=== PATIENT | female | born 1945 | race Caucasian/White ===

== ENCOUNTER 2025-05-21 09:11 | Emergency (ER) | payer MEDICARE, SELFPAY ==
--- NOTE | ~2025-05-21 | XR_ITS ---
EXAMINATION: XR CHEST 2 VIEWS HISTORY: sent by PCP COMPARISON: There are no prior studies available for comparison. FINDINGS: PA and lateral views of the chest are submitted. The lungs are expanded and clear. There is no pleural effusion, pneumothorax, or pulmonary vascular congestion. The heart is normal in size. There is mitral annular calcification. There is mild degenerative disc disease of the spine. XR/XR chest 2V IMPRESSION: Clear lungs. Electronically signed by: Pieter Morel MD 05/21/2025 10:51 AM EDT
--- NOTE | 2025-05-21 09:15 | ECG_ITS ---
Test Reason : reported occlusion Blood Pressure : */* mmHG Vent. Rate : 46 BPM Atrial Rate : 46 BPM P-R Int : 176 ms QRS Dur : 154 ms QT Int : 472 ms P-R-T Axes : 60 -12 113 degrees QTcB Int : 413 ms Sinus rhythm with 2:1 AV block Possible Left atrial enlargement Left bundle branch block Abnormal ECG No previous ECGs available Referred By: Generic ED Physician Electronically Signed By: Keaton Pugh
[2025-05-21 09:23] VITALS: BP 146/66; PULSE 45; RESP 18; TEMP 36.7; O2SAT 99; BMI 29.3
[2025-05-21 09:29] VITALS: BP 165/46; PULSE 47; RESP 13; TEMP 36.7; O2SAT 99
--- NOTE | 2025-05-21 09:35 | PC.NURSE ---
Pt originally went to [facility]. They did an EKG and XRay and blood work on the . Her Dr's office called her to get back to an ER for a blockage. Pt has a productive cough. Denies pain or any other symptoms. She is about her usual activities, indepedent at home.
--- NOTE | 2025-05-21 09:36 | ED_ITS ---
HPI - General Adult General Chief complaint: General Medical Stated complaint: blocked artery, sent by pcp Time Seen by Provider: 05/21/25 09:36 Source: patient, RN notes reviewed and old records reviewed Mode of arrival: ambulatory Limitations: no limitations History of Present Illness ED Provider: Radha [facility] narrative: Patient is a 80-year-old female with history of LBBB referred to the ED by her PCP for blocked artery, but denies any current complaints. States was initially referred to [facility] and she went there on Saturday but left from the waiting room due to wait time. She denies any chest pain, palpitations, shortness of breath. Denies dizziness, lightheadedness, fainting, pedal edema or recent weight gain. States that she has been moving which has been stressful. MD complaint: referred by PCP Related Data Allergies Allergy/AdvReac Type Severity Reaction Status Date / Time No Known Allergies Allergy Verified 05/21/25 09:24 Review of Systems 2 Review of Systems: As per HPI Yes all other systems are reviewed and are negative Constitutional: Constitutional: Reports as per HPI Physical Exam ED Vital Signs: Vital Signs - 24 hr 05/21/25 09:23 05/21/25 09:29 05/21/25 10:55 Temperature 98.1 F 98.1 F Pulse Rate 45 L 47 L 54 Respiratory Rate 18 13 10 L Blood Pressure 146/66 H 165/46 H 138/61 Pulse Oximetry 99 99 Oxygen Delivery Method Room Air Room Air Room Air 05/21/25 12:25 05/21/25 13:59 Temperature 98.3 F 98.3 F Pulse Rate 57 66 Respiratory Rate 12 13 Blood Pressure 161/53 H 149/62 H Pulse Oximetry 99 100 Oxygen Delivery Method Room Air Room Air BMI result Body Mass Index 29.3 Vital signs have been reviewed and appear to be correct. Blood pressure normal. Heart rate bradycardic. Respiratory rate normal. Temperature normal. Oxygen saturation normal. Const General: cooperative, healthy appearing and no acute distress Orientation/consciousness: oriented to person, oriented to place, oriented to time and patient oriented x3 Limitations: no limitations HENMT Head: Yes normocephalic and Yes atraumatic Ears: external ears normal General nose exam: Normal external nose present Face and sinus: Yes face symmetric Mouth: oropharynx normal and moist mucous membranes Throat: Yes uvula midline Eyes Pupils: Equal, round and reactive pupils present Neck Neck: Yes normal visual inspection and Yes supple Resp Effort & Inspection: normal respiratory effort and able to speak in complete sentences Auscultation: clear to auscultation bilaterally Cardio Rate: regular rate Rhythm: regular rhythm Heart sounds: S1 normal heart sound present and S2 normal heart sound present GI Palpation (GI): Soft to palpation and nontender Auscultation: normoactive bowel sounds General: Yes no CVA tenderness Back/Spine/Pelvis Back: no CVA tenderness Skin General skin exam: elasticity normal and turgor normal Neuro General: oriented to person, oriented to place, oriented to time, patient oriented x3, moves all extremities, no focal motor deficits and CN's II-XI intact bilaterally Cranial nerves: Yes Equal, round and reactive pupils present Cognition (Neuro): normal cognition Extrem General: Yes full ROM, Yes no calf tenderness and Yes pedal edema (1+ edema) Psych Mental Status: mental status grossly normal Affect: normal affect Thought process: Normal thought process present Medical Decision Making Medical Decision Making [facility] Narrative: Patient is a 80-year-old female with history of LBBB referred to the ED by her PCP for blocked artery, but denies any current complaints. Upon review of EMR from recent [facility] visit, PCP was concerned for complete heart block. Contacted PCP office (Dr. Rodriguez in [place]) and had original EKG faxed here. EKG reviewed with Dr. Rangel who is in agreement that initial EKG appears more consistent with a 2nd degree block than a complete heart block. When here patient's HR noted to drop as low as 35bpm. Several repeat EKGs obtained. Case discussed with Dr. Pugh who feels patient is in advanced AV block. He advises keeping her NPO, stat echo and transfer to [facility] for urgent placement of pacemaker. Patient continues to deny any complaints, was updated on and is agreeable with plan. Cardiology unable to accept patient as no beds available, however, Dr. Pugh requesting patient be ED to ED transfer for placement of pacemaker today. ED transfer accepted by Dr. Gomez at [facility]. Differential Diagnosis Differential Diagnoses: The differential diagnosis associated with the presentation includes as per mdm Admission/Observation Consideration of admission/observation: Escalation of care including admission/observation considered Patient would have been admitted to the hospital and transferred to appropriate facility had their clinical presentation warranted hospital admission. Consult Healthcare Provider Management of the patient was discussed with: Highway Truck Driver (Dr. Pugh, cardiology) Lab Data [facility] Lab Attestation statement: I reviewed the patient's lab results. as per mdm 05/21/25 10:00 05/21/25 10:00 Labs: Lab Results 05/21/25 05/21/25 Range/Units 10:00 12:39 WBC 5.9 (4.8-10.8) X10*3/uL RBC 4.45 (4.20-5.50) X10*6/uL Hgb 12.3 (12.0-16.0) g/dl Hct 35.5 L (37.0-47.0) % MCV 79.8 L (80.0-98.0) fL MCH 27.6 (27.0-33.0) pg MCHC 34.6 (31.0-35.0) g/dl RDW 13.2 (11.0-16.0) % Plt Count 224 (160-400) X10*3/uL MPV 9.1 L (9.4-12.3) fL Immature Gran % (Auto) 0.3 (0.0-0.4) % Neut % (Auto) 72.7 (45-73) % Lymph % (Auto) 18.4 L (20-40) % [place] % (Auto) 7.1 (2-11) % Eos % (Auto) 1.0 (0-4) % Baso % (Auto) 0.5 (0-2) % Lymph # (Auto) 1.1 L (1.2-4.9) X10*3/uL [place] # (Auto) 0.4 (0.1-1.2) X10*3/uL Eos # (Auto) 0.1 (0.0-0.4) X10*3/uL Baso # (Auto) 0.0 (0.0-0.2) X10*3/uL Abs Immat Gran (auto) 0.02 (0.00-0.03) X10*3/uL Absolute Neuts (auto) 4.3 (2.0-8.3) x10*3/uL Absolute Nucleated RBC 0.000 (0.0-0.012) X10*3/uL Nucleated RBC % (auto) 0.0 (0.0-0.2) /100WBC PT 13.2 H (10.9-12.4) SEC INR 1.2 H (0.9-1.1) Sodium 131 L (135-145) mmol/L Potassium 3.6 (3.3-5.1) mmol/L Chloride 95 L (96-108) mmol/L Carbon Dioxide 29 (22-29) mmol/L Anion Gap 11 L (12-20) BUN 10 (9-16) mg/dL Creatinine 0.89 (0.5-1.4) mg/dL Estim Creat Clear Calc 48.6 Estimated GFR > 60 Random Glucose 165 H (60-115) mg/dL Calcium 8.9 (8.4-10.2) mg/dL Magnesium 1.7 (1.6-2.6) mg/dL Total Bilirubin 0.6 (0.0-1.0) mg/dL AST 22 (5-31) U/L ALT 16 (0-31) U/L Alkaline Phosphatase 68 (39-117) U/L Troponin I High Sens 5.9 5.9 (<3.5-17.0) ng/L Total Protein 6.8 (6.5-8.0) g/dL Albumin 4.0 (3.5-5.0) g/dL Independent Interpretation I performed an independent interpretation of an: EKG (EKGs show both sinus bradycardia as well as 2nd degree block, bradycardia between 35-45bpm, LBBB) External Record Review External record reviewed: Inpatient record, Office record and Outpatient record Critical Care Time Critical Care Time Critical Care Time: Yes Total Critical Care Time: 55 Attestation: I have personally provided critical care time exclusive of time spent on separately billable procedures. Time includes review of lab data, radiology results, discussion with consultants, and monitoring for potential decompensation. Intervention performed as documented. Discharge Plan Discharge Clinical Impression: Atrioventricular block, second degree Patient Disposition: [facility] Transfer Details: to [facility] ED Discharge Date/Time: 05/21/25 16:17 Print Language: Tuvaluan
--- NOTE | 2025-05-21 09:39 | ECG_ITS ---
Test Reason : REPEAT Blood Pressure : */* mmHG Vent. Rate : 42 BPM Atrial Rate : 42 BPM P-R Int : 178 ms QRS Dur : 160 ms QT Int : 522 ms P-R-T Axes : 41 -2 86 degrees QTcB Int : 435 ms Sinus rhythm with Mobitz 2 (2nd degree) and 2:1 block beat 4 onwards Left bundle branch block Abnormal ECG When compared with ECG of 21-May-2025 09:18, No significant changes seen Referred By: An Garcia Electronically Signed By: Keaton Pugh
[2025-05-21 10:12] LABS: MANUAL DIFF FLAG NO
--- NOTE | 2025-05-21 10:23 | ECG_ITS ---
Test Reason : REPEAT Blood Pressure : */* mmHG Vent. Rate : 37 BPM Atrial Rate : 37 BPM P-R Int : 178 ms QRS Dur : 156 ms QT Int : 522 ms P-R-T Axes : 36 0 69 degrees QTcB Int : 409 ms 2:1 AV bliock Left bundle branch block Abnormal ECG When compared with ECG of 21-May-2025 10:29, No significant changes seen Referred By: An Garcia Electronically Signed By: Keaton Pugh
[2025-05-21 10:38] LABS: INTERNATIONAL NORM RATIO 1.2 (0.9-1.1); Prothrombin Time 13.2 SEC (10.9-12.4)
[2025-05-21 10:39] LABS: Alanine Aminotransferase 16 U/L (0-31); Albumin Level 4.0 g/dL (3.5-5.0); Alkaline Phosphatase 68 U/L (39-117); Anion Gap 11 (12-20); Aspartate Amino Transferase 22 U/L (5-31); Blood Urea Nitrogen 10 mg/dL (9-16); Calcium 8.9 mg/dL (8.4-10.2); Carbon Dioxide 29 mmol/L (22-29); Chloride 95 mmol/L (96-108); Creatinine Clr Calc Pharmacy 48.6; Estimated Glomerular Filt Rate > 60; Magnesium 1.7 mg/dL (1.6-2.6); Potassium 3.6 mmol/L (3.3-5.1); Sodium 131 mmol/L (135-145); Total Protein 6.8 g/dL (6.5-8.0)
[2025-05-21 10:44] LABS: Hematocrit 35.5 % (37.0-47.0); Hemoglobin 12.3 g/dl (12.0-16.0); Imm Gran Abs Auto 0.02 X10*3/uL (0.00-0.03); Imm Gran Pct Auto 0.3 % (0.0-0.4); Lymphocytes Absolute Auto 1.1 X10*3/uL (1.2-4.9); Mean Corpuscular HGB Conc 34.6 g/dl (31.0-35.0); Mean Corpuscular Hemoglobin 27.6 pg (27.0-33.0); Mean Corpuscular Volume 79.8 fL (80.0-98.0); NRBC Abs Auto 0.000 X10*3/uL (0.0-0.012); NRBC Pct Auto 0.0 /100WBC (0.0-0.2); Platelet Count 224 X10*3/uL (160-400); Red Blood Count 4.45 X10*6/uL (4.20-5.50); White Blood Count 5.9 X10*3/uL (4.8-10.8)
[2025-05-21 10:46] LABS: Troponin-I High Sensitivity 5.9 ng/L (<3.5-17.0)
[2025-05-21 10:55] VITALS: BP 138/61; PULSE 54; RESP 10
--- NOTE | 2025-05-21 11:00 | PC.NURSE ---
Pt has intermittent heart rate in the 30's, looks like first degree heart block on the telemetry. Pt continues to report no complaints.
[2025-05-21 12:25] VITALS: BP 161/53; PULSE 57; RESP 12; TEMP 36.8; O2SAT 99
[2025-05-21 13:13] LABS: Troponin-I High Sensitivity 5.9 ng/L (<3.5-17.0)
--- NOTE | 2025-05-21 13:48 | PC.NURSE ---
Attempted to call report to [facility]. No answer.
[2025-05-21 13:59] VITALS: BP 149/62; PULSE 66; RESP 13; TEMP 36.8; O2SAT 100
--- NOTE | 2025-05-21 15:35 | P.CONCA_ITS ---
History of Present Illness History of Present Illness Date of Service: 05/21/25 Requesting physician: An Garcia Chief complaint: CHB Narrative: [age] year female who we have been asked to see for advanced AV block. Sent from her primary care physician's office where EKGs showed complete heart block. EKGs here has shown two-to-one AV block with left bundle-branch block. She is asymptomatic and denies any chest discomfort shortness of breath. No syncope. Continue no medications to explain the bradycardia. Potassium is normal. Echocardiography has shown normal biventricular function with [id number] mitral valve regurgitation. [facility] Social History Social History Smoked in Last 30 Days: No Use of substances other than those prescribed or required for medical reasons: No Advance Directives: Yes Advance Directives Information Provided: Yes Advance Directives on File: No Meds Allergies Allergy/AdvReac Type Severity Reaction Status Date / Time No Known Allergies Allergy Verified 05/21/25 09:24 Physical Exam 2 Vital Signs: Vital Signs: Last Vital Signs Temp 98.3 F 05/21/25 13:59 Pulse 66 05/21/25 13:59 Resp 13 05/21/25 13:59 BP 149/62 H 05/21/25 13:59 Pulse Ox 100 05/21/25 13:59 O2 Del Method Room Air 05/21/25 13:59 BMI result Body Mass Index 29.3 GENERAL APPEARANCE: in no acute distress, pleasant. NECK: no carotid bruit, no jugular venous distention. SKIN: no suspicious lesions, warm and dry. HEART: no murmurs, regular rate and rhythm. LUNGS: clear to auscultation bilaterally. ABDOMEN: soft, nontender. EXTREMITIES: no edema. PERIPHERAL PULSES: equal. NEUROLOGIC: No gross deficits, AAO X 3 Objective Labs and Meds 05/21/25 10:00 05/21/25 10:00 Lab results: Laboratory Results - last 24 hr 05/21/25 05/21/25 10:00 12:39 WBC 5.9 RBC 4.45 Hgb 12.3 Hct 35.5 L MCV 79.8 L MCH 27.6 MCHC 34.6 RDW 13.2 Plt Count 224 MPV 9.1 L Immature Gran % (Auto) 0.3 Neut % (Auto) 72.7 Lymph % (Auto) 18.4 L [place] % (Auto) 7.1 Eos % (Auto) 1.0 Baso % (Auto) 0.5 Lymph # (Auto) 1.1 L [place] # (Auto) 0.4 Eos # (Auto) 0.1 Baso # (Auto) 0.0 Abs Immat Gran (auto) 0.02 Absolute Neuts (auto) 4.3 Absolute Nucleated RBC 0.000 Nucleated RBC % (auto) 0.0 PT 13.2 H INR 1.2 H Sodium 131 L Potassium 3.6 Chloride 95 L Carbon Dioxide 29 Anion Gap 11 L BUN 10 Creatinine 0.89 Estim Creat Clear Calc 48.6 Estimated GFR > 60 Random Glucose 165 H Calcium 8.9 Magnesium 1.7 Total Bilirubin 0.6 AST 22 ALT 16 Alkaline Phosphatase 68 Troponin I High Sens 5.9 5.9 Total Protein 6.8 Albumin 4.0 Imaging Radiologist's impression: Impressions Chest X-Ray 05/21/25 10:41 IMPRESSION: Clear lungs. Electronically signed by: Pieter Morel MD 05/21/2025 10:51 AM EDT Assessment and Plan (1) Atrioventricular block, second degree: Status: Acute Plan Advanced AV block in a 80-year-old lady with background of left bundle-branch block. She is currently asymptomatic but pacemaker is indicated. Keep NPO. Our plan is to implant a pacemaker today. Echocardiography has shown normal biventricular function and there is no need for RELIGIOUS EDUCATION COORDINATOR etcetera. Would favor doing a left bundle branch area pacemaker. Thank you for allowing me to participate in the care of your patient. Please feel free to contact me if you have any questions. Procedures Date of Service Date of Service: 05/21/25
--- NOTE | 2025-05-21 16:00 | CA_ITS ---
Transthoracic Echocardiogram Amended Patient (Last, First, Middle): Deisy Salomon L Gender: F Date of : 1945 Age: 80 Procedure Date: 05/21/2025 Procedure Type: Transthoracic Echocardiogram Location: ER Height: 157.48 cm Weight: 72.58 kg BSA: 1.74 m2 Heart Rate: bpm BP: 149 / 62 mmHg Rn Child: PETER Referring MD: An Garcia NP Symptoms: advanced AV block Study Quality: Adequate Conclusions: - Normal left ventricular size and systolic function. There is mildly increased left ventricular wall thickness. The visually estimated ejection fraction is between 55-60%. - Normal right ventricular cavity size and systolic function. - The left atrium is moderately dilated. - There is mild to moderate mitral valve regurgitation. Findings Left Ventricle Normal left ventricular size and systolic function. There is mildly increased left ventricular wall thickness. The visually estimated ejection fraction is between 55-60%. There is no evidence of regional wall motion abnormalities. Diastolic function is indeterminate on the basis of available data. Right Ventricle Normal right ventricular cavity size and systolic function. Atria The left atrium is moderately dilated. The right atrium is normal in size. Aortic Valve Normal aortic valve structure and function. There is no aortic valve stenosis. There is no aortic valve regurgitation. Mitral Valve There is severe mitral annular calcification. There is mild to moderate mitral valve regurgitation. There is no mitral valve stenosis. Pulmonic Valve The pulmonic valve is likely normal. Tricuspid Valve Normal tricuspid valve structure. There is no tricuspid valve regurgitation. The right ventricular systolic pressure is 30 mmHg. Normal right atrial pressure. There is no evidence of pulmonary hypertension. Great Vessels All visible segments of the aorta are normal in size. The visualized portions of the pulmonary artery and branches are normal. Venous The inferior vena cava is normal in size and collapses greater than 50% with inspiration. Pericardium/Pleural There is no evidence of pericardial effusion. Prior Study Comparison No prior study available for comparison. Measurements 2D Linear Measurements IVSd: 1.26 0.6-0.9/0.6-1.0 cm LVIDd: 4.46 3.9-5.3/4.2-5.9 cm LVIDd Index: 2.56 2.4-3.2/2.2-3.1 cm/m2 LVIDs: 3.27 2.0-3.6 cm LVPWd: 1.17 0.7-1.1 cm LA Diam: 4.30 2.7-3.8/3.0-4.0 cm LAIDs Index: 2.47 1.5-2.3 cm/m2 LV Mass: 247.90 67-162/88-224 g LV Mass Index: 142.47 43-95/49-115 g/m2 LVOT Diam: 2.00 3.0+(-)1.3 cm 2D Systolic Function EF 4C: 47.50 >55% EF 2C: 62.10 >55% EF BiP: 55.50 >55% Mitral Valve MV VTI: 0.43 MV Pk Gary: 1.69 MV Mn Gary: 0.92 MV Pk Grad: 11.00 MV Mn Grad: 4.00 MV Pk E: 0.89 MV PK A: 1.48 MV Decel Time: 292.00 E/A: 0.60 E'Lateral: 4.87 E'Medial: 4.22 E/E' Med: 21.20 E/E' Lat: 18.40 PHT: 86.00 MVA PHT: 2.56 MVA Continuity: 1.53 Decel Long: 3.06 MR Vol - PW Dopp: 8.04 MR VTI: 2.01 MR ERO: 4.00 MR Alias Gary: 0.39 MR RAD: 0.30 Aortic Valve AoV Pk Gary: 1.40 AoV Mn Gary: 0.92 AoV VTI: 0.33 AoV Pk Grad: 8.00 Aov Mn Grad: 4.00 BRIDGET Cont.VTI: 2.00 LVOT LVOT Pk Gary: 0.89 LVOT Mn Gary: 0.64 LVOT VTI: 0.21 LVOT Pk Grad: 3.00 LVOT Mn Grad: 2.00 LVOT Diam: 2.00 LVOT Area: 3.14 Diastolic Function MV Pk E: 0.89 MV Pk A: 1.48 E/A: 0.60 E'Medial: 4.22 E/E' Med: 21.20 E' Laterial: 4.87 E/E' Lat: 18.40 Right Ventricle TAPSE (mm): 22.40 TVS' Gary: 12.40 Tricuspid Valve TR Pk Gary: 2.60 TR Pk Grad: 27.00 RA Press: 3.00 RVSP: 30.00 Great Vessels Aorta Sinus of Valsalva: 3.00 2.0-3.5 cm Ao Asc: 3.60 2.1-3.4 cm Ao Arch: 3.00 Pulmonary Veins Pulm Vein S/D 2.20 Pulmonary Valve PV Pk Gary: 0.94 Peak PV Grad: 4.00 Updated in Other Vendor System with Status of Final Keaton Pugh MD electronically signed on 05/31/2025 3:48:16 PM with status of Final
== END 2025-05-21 16:17 | disposition short-term general hospital (02) ==
PROVIDERS: Registered Nurse Emergency; Emergency Provider Emergency Medicine Emergency Medical Services; PCP Internal Medicine
DX: I65.09 Occlusion and stenosis of unspecified vertebral artery (principal)
CPT/HCPCS: 36415; 71046; 80053; 83735; 84484; 85025; 85610; 93005; 93306; 99284; 99291; Q9957

== ENCOUNTER → 2025-05-21 09:40 | Outpatient (BNV) | payer MEDICARE, SELFPAY | PROVIDERS: Emergency Provider Emergency Medicine Emergency Medical Services; PCP Internal Medicine; Visit Provider Radiology Diagnostic Radiology | DX: I44.1 Atrioventricular block, second degree (principal) | CPT/HCPCS: 71046 ==

== ENCOUNTER → 2025-05-21 09:44 | Outpatient (BNV) | payer MEDICARE, SELFPAY | PROVIDERS: Emergency Provider Emergency Medicine Emergency Medical Services; PCP Internal Medicine; Visit Provider Internal Medicine Cardiovascular Disease | DX: I44.1 Atrioventricular block, second degree (principal) | CPT/HCPCS: 93010; 99284 ==

== ENCOUNTER 2025-08-01 10:48 | Inpatient (IN) | payer MEDICARE, SELFPAY ==
--- NOTE | ~2025-08-01 | US_ITS ---
CLINICAL HISTORY: jaundice --- Additional Notes or Special Instructions: CBD and GB pls US abdomen limited Comparison: None provided Findings: There is irregular hypoechoic heterogeneous lesion centered within the uncinate process of the pancreas measuring 4 x 2.7 x 3.4 cm. Moderate upstream dilation of the pancreatic duct up to 1.8 cm. The aorta and inferior vena cava are normal caliber. Liver measures 18.5 cm in size. It demonstrates increased parenchymal echogenicity. There is evidence of intra and extrahepatic ductal dilation. The common duct is 19 mm in diameter. Gallbladder is nondistended. It contains moderate amount of stones and sludge. The main portal vein is antegrade. The right kidney is 11.8 cm in length. No ascites. IMPRESSION: 1. Hypoechoic irregular lesion within the uncinate process of the pancreas measuring 4 x 2.7 x 3.4 cm with associated upstream pancreatic, common bile duct and intrahepatic ductal dilation. Findings are highly concerning for pancreatic malignancy until proven otherwise. Further evaluation with multiphase CT or MRI should be considered. 2. Moderate cholelithiasis without definite sonographic findings to suggest acute cholecystitis. 3. Additional findings as above. This document has been electronically signed by: Khushboo Gonzalez MD on 08/01/2025 12:07:25
--- NOTE | ~2025-08-01 | FL_ITS ---
EXAMINATION: FL GUIDANCE ONLY HISTORY: ERCP COMPARISON: Correlation is made with a CT of the abdomen with contrast dated 08/01/2025. TECHNIQUE: Fluoroscopy time: 6 minutes, 30 seconds. Cumulative Dose: 127.50 mGy. DAP: 4860.1 uGym2 Images: 17. FINDINGS: Fluoroscopic spot films from an ERCP demonstrate dilatation of the common bile duct and intrahepatic biliary radicles with abrupt tapering. The final images demonstrate placement of a stent. FL/FL guidance in OR IMPRESSION: Fluoroscopy during procedure. Please see procedure report for additional information. Electronically signed by: Pieter Morel MD 08/03/2025 07:[address] [facility]
--- NOTE | ~2025-08-01 | CT_ITS ---
CLINICAL HISTORY: jaundice, ?pancreatic mass on us CT abdomen and pelvis with contrast Comparison: Abdominal ultrasound 08/01/2025 Findings: No acute findings within visualized lung bases. As seen on preceding ultrasound, there is ill-defined hypoenhancing lesion centered within the uncinate process of the pancreas measuring 3.1 x 3 x 2.8 cm ( series 3, image 28 and series 6, image 29 ). There is moderate upstream dilation of the pancreatic and common bile ducts as well as moderate prominence of intrahepatic bile ducts. Gallbladder is moderately distended. Layering calcified gallstones. No wall thickening or pericholecystic edema. Spleen, kidneys, adrenal glands, are unremarkable. Calcified but nonaneurysmal abdominal aorta. Distended urinary bladder. Hysterectomy. Nondistended stomach. No small bowel obstruction. Colonic diverticulosis without CT evidence of acute diverticulitis. Colon is otherwise unremarkable. No appendicitis. No definite pathologically enlarged lymph nodes. No acute osseous abnormality. No lytic or sclerotic osseous lesions. Impression: 1. Heterogeneous hypoenhancing mass within the uncinate process of the pancreas highly concerning for primary pancreatic malignancy. Moderate upstream dilation of the intrahepatic, pancreatic and common bile ducts. 2. Distended gallbladder containing several layering stones without definite CT evidence to suggest acute cholecystitis. 3. Additional findings as above. This document has been electronically signed by: Khushboo Gonzalez MD on 08/01/2025 12:48:11
[2025-08-01 10:53] VITALS: BP 173/73; PULSE 68; RESP 16; TEMP 36.5; O2SAT 99; BMI 28.0
--- NOTE | 2025-08-01 10:59 | ED_ITS ---
HPI - General Adult General Chief complaint: General Medical Stated complaint: jaundice? Time Seen by Provider: 08/01/25 10:57 Source: patient, RN notes reviewed and old records reviewed Mode of arrival: ambulatory Limitations: no limitations History of Present Illness ED Provider: Radha [facility] narrative: Patient is a 80-year-old female with history of recent pacemaker placement on 05/21/2025 presenting to the emergency department as family noted she was appearing jaundiced. Patient states that she has not noticed the jaundice herself in the mirror. Patient denies any abdominal pain, nausea, vomiting, diarrhea, constipation. Denies any recent fevers. Denies any chest pain or shortness of breath. She does note that for the past week or so she has had white/pressley bowel movements. She was attributing this to recently beginning a turmeric supplement around the same time. Saw her biological scientist on and they did not note that she appeared jaundiced at that visit. MD complaint: jaundice Related Data Allergies Allergy/AdvReac Type Severity Reaction Status Date / Time No Known Allergies Allergy Verified 08/01/25 10:55 Review of Systems 2 Review of Systems: as per hpi Yes all other systems are reviewed and are negative Constitutional: Constitutional: Reports as per HPI [facility] Social History Social History Smoked in Last 30 Days: No Use of substances other than those prescribed or required for medical reasons: No Advance Directives: No Advance Directives Information Provided: Yes Do you have a plan to hurt others: No Plan Physical Exam ED Vital Signs: Vital Signs - 24 hr 08/01/25 10:53 08/01/25 14:36 Temperature 97.7 F 98.1 F Pulse Rate 68 62 Respiratory Rate 16 16 Blood Pressure 173/73 H 135/52 L Pulse Oximetry 99 98 Oxygen Delivery Method Room Air Room Air BMI result Body Mass Index 28.0 Vital signs have been reviewed and appear to be correct. Blood pressure elevated. Heart rate normal. Respiratory rate normal. Temperature normal. Oxygen saturation normal. Const General: cooperative, healthy appearing and no acute distress Orientation/consciousness: oriented to person, oriented to place, oriented to time and patient oriented x3 Limitations: no limitations HENMT Head: Yes normocephalic and Yes atraumatic Ears: external ears normal General nose exam: Normal external nose present Face and sinus: Yes face symmetric Mouth: oropharynx normal and moist mucous membranes Throat: Yes uvula midline Eyes Sclerae: scleral abnormal bilateral (icterus) Pupils: Equal, round and reactive pupils present Neck Neck: Yes normal visual inspection and Yes supple Resp Effort & Inspection: normal respiratory effort and able to speak in complete sentences Auscultation: clear to auscultation bilaterally Cardio Rate: regular rate Rhythm: regular rhythm Heart sounds: S1 normal heart sound present and S2 normal heart sound present GI Palpation (GI): Soft to palpation and nontender Auscultation: normoactive bowel sounds General: Yes no CVA tenderness Back/Spine/Pelvis Back: no CVA tenderness Skin General skin exam: elasticity normal, turgor normal and jaundice Neuro General: oriented to person, oriented to place, oriented to time, patient oriented x3, moves all extremities, no focal motor deficits and CN's II-XI intact bilaterally Cranial nerves: Yes Equal, round and reactive pupils present Cognition (Neuro): normal cognition Extrem General: Yes full ROM, Yes no pedal edema and Yes no calf tenderness Psych Mental Status: mental status grossly normal Affect: normal affect Thought process: Normal thought process present Medications Administered Discontinued Medications Generic Name Dose Route Start Last Admin Trade Name Freq PRN Reason Stop Dose Admin Iohexol 100 ml 08/01/25 12:08 08/01/25 12:09 Iohexol 350 Mg/Ml 100 Ml Infus..Btl IV 08/01/25 12:09 85 ml ONCE ONE Administration Medical Decision Making Medical Decision Making [facility] Narrative: Patient is a 80-year-old female with history of recent pacemaker placement on 05/21/2025 presenting to the emergency department as family noted she was appearing jaundiced. On exam patient is awake, A+Ox3, VS WNL, afebrile, normal neurological exam without focal deficits, physical exam findings as above. Given reported symptoms and physical exam findings, initial differential includes but is not limited to choledocolithiasis, turmeric-induced hepatotoxicity, malignant biliary obstruction, acute liver failure. Unlikely ascending cholangitis. Labs notable for significantly elevated Tbili, direct bili, mildly elevated transaminases, elevated alk phos, elevated lipase and triglycerides. Ultrasound notable for pancreatic lesion with pancreatic, CBD and intrahepatic ductal dilation concerning for malignancy. CT abdomen pelvis notable again for pancreatic mass and dilation of ducts. Also notable for distended gallbladder containing several layering stones. My interpretation is in agreement with the radiologist's interpretation. Case discussed with Dr. Soria from who is requesting STAT MRCP. Spoke with MRI, they feel MRCP unlikely today. Dr. Soria feels patient can be admitted here and get the MRCP in the morning. Case discussed with SEJAL Castillo hospitalist who accepts admission to medicine. Differential Diagnosis Differential Diagnoses: The differential diagnosis associated with the presentation includes as per [facility] Consult Healthcare Provider Management of the patient was discussed with: Hospitalist and Supervisor [employer] (Dr. Soria) Lab Data [facility] Lab Attestation statement: I reviewed the patient's lab results. as per [facility] 08/01/25 11:11 08/01/25 11:11 Labs: Lab Results 08/01/25 Range/Units 11:11 WBC 6.0 (4.8-10.8) X10*3/uL RBC 4.24 (4.20-5.50) X10*6/uL Hgb 11.7 L (12.0-16.0) g/dl Hct 35.4 L (37.0-47.0) % MCV 83.5 (80.0-98.0) fL MCH 27.6 (27.0-33.0) pg MCHC 33.1 (31.0-35.0) g/dl RDW 18.4 H (11.0-16.0) % Plt Count 226 (160-400) X10*3/uL MPV 10.8 (9.4-12.3) fL Immature Gran % (Auto) 0.7 H (0.0-0.4) % Neut % (Auto) 72.1 (45-73) % Lymph % (Auto) 16.4 L (20-40) % [place] % (Auto) 9.0 (2-11) % Eos % (Auto) 1.3 (0-4) % Baso % (Auto) 0.5 (0-2) % Lymph # (Auto) 1.0 L (1.2-4.9) X10*3/uL [place] # (Auto) 0.5 (0.1-1.2) X10*3/uL Eos # (Auto) 0.1 (0.0-0.4) X10*3/uL Baso # (Auto) 0.0 (0.0-0.2) X10*3/uL Abs Immat Gran (auto) 0.04 H (0.00-0.03) X10*3/uL Absolute Neuts (auto) 4.3 (2.0-8.3) x10*3/uL Absolute Nucleated RBC 0.000 (0.0-0.012) X10*3/uL Nucleated RBC % (auto) 0.0 (0.0-0.2) /100WBC PT 15.3 H (11.2-13.5) SEC INR 1.3 H (0.9-1.1) Sodium 134 L (135-145) mmol/L Potassium 3.7 (3.3-5.1) mmol/L Chloride 103 (96-108) mmol/L Carbon Dioxide 24 (22-29) mmol/L Anion Gap 11 L (12-20) BUN 12 (9-16) mg/dL Creatinine 0.51 (0.5-1.4) mg/dL Estim Creat Clear Calc 83.0 Estimated GFR > 60 Random Glucose 160 H (60-115) mg/dL Calcium 9.0 (8.4-10.2) mg/dL Total Bilirubin 17.4 H (0.0-1.0) mg/dL Direct Bilirubin 12.0 H (0.0-0.5) mg/dL AST 94 H (5-31) U/L ALT 93 H (0-31) U/L Alkaline Phosphatase 349 H (39-117) U/L Ammonia 22 (13-55) umol/L Total Protein 6.5 (6.5-8.0) g/dL Albumin 3.6 (3.5-5.0) g/dL Triglycerides 215 H (<150) mg/dL Lipase 1034 H (8-78) U/L Independent Interpretation I performed an independent interpretation of an: Ultrasound and CT Scan Interpretation: Ultrasound notable for pancreatic lesion with pancreatic, CBD and intrahepatic ductal dilation concerning for malignancy. CT abdomen pelvis notable again for pancreatic mass and dilation of ducts. Also notable for distended gallbladder containing several layering stones. Radiology Impression Discussion of test interpretation with radiology: I have reviewed the radiologist's reading. Radiologist Impression: Impression: 1. Heterogeneous hypoenhancing mass within the uncinate process of the pancreas highly concerning for primary pancreatic malignancy. Moderate upstream dilation of the intrahepatic, pancreatic and common bile ducts. 2. Distended gallbladder containing several layering stones without definite CT evidence to suggest acute cholecystitis. 3. Additional findings as above. IMPRESSION: 1. Hypoechoic irregular lesion within the uncinate process of the pancreas measuring 4 x 2.7 x 3.4 cm with associated upstream pancreatic, common bile duct and intrahepatic ductal dilation. Findings are highly concerning for pancreatic malignancy until proven otherwise. Further evaluation with multiphase CT or MRI should be considered. 2. Moderate cholelithiasis without definite sonographic findings to suggest acute cholecystitis. 3. Additional findings as above. External Record Review External record reviewed: Inpatient record, Office record and Outpatient record Critical Care Time Critical Care Time Critical Care Time: Yes Total Critical Care Time: 55 Attestation: I have personally provided critical care time exclusive of time spent on separately billable procedures. Time includes review of lab data, radiology results, discussion with consultants, and monitoring for potential decompensation. Intervention performed as documented. Discharge Plan Discharge Print Language: Kyrgyz
[2025-08-01 11:18] LABS: Hematocrit 35.4 % (37.0-47.0); Hemoglobin 11.7 g/dl (12.0-16.0); Imm Gran Abs Auto 0.04 X10*3/uL (0.00-0.03); Imm Gran Pct Auto 0.7 % (0.0-0.4); Lymphocytes Absolute Auto 1.0 X10*3/uL (1.2-4.9); MANUAL DIFF FLAG NO; Mean Corpuscular HGB Conc 33.1 g/dl (31.0-35.0); Mean Corpuscular Hemoglobin 27.6 pg (27.0-33.0); Mean Corpuscular Volume 83.5 fL (80.0-98.0); NRBC Abs Auto 0.000 X10*3/uL (0.0-0.012); NRBC Pct Auto 0.0 /100WBC (0.0-0.2); Platelet Count 226 X10*3/uL (160-400); Red Blood Count 4.24 X10*6/uL (4.20-5.50); White Blood Count 6.0 X10*3/uL (4.8-10.8)
--- NOTE | 2025-08-01 11:24 | PC.NURSE ---
Pt is deep yellow/jaundice. Sclera, chest, abd. Denies pain and all hx related to liver issues. Never drank. Recently started Tumeric and wondered if this could be the cause.
[2025-08-01 11:25] LABS: INTERNATIONAL NORM RATIO 1.3 (0.9-1.1); Prothrombin Time 15.3 SEC (11.2-13.5)
[2025-08-01 11:27] LABS: Ammonia 22 umol/L (13-55)
[2025-08-01 11:41] LABS: Alanine Aminotransferase 93 U/L (0-31); Albumin Level 3.6 g/dL (3.5-5.0); Alkaline Phosphatase 349 U/L (39-117); Anion Gap 11 (12-20); Aspartate Amino Transferase 94 U/L (5-31); Blood Urea Nitrogen 12 mg/dL (9-16); Calcium 9.0 mg/dL (8.4-10.2); Carbon Dioxide 24 mmol/L (22-29); Chloride 103 mmol/L (96-108); Creatinine Clr Calc Pharmacy 83.0; Estimated Glomerular Filt Rate > 60; Potassium 3.7 mmol/L (3.3-5.1); Sodium 134 mmol/L (135-145); Total Protein 6.5 g/dL (6.5-8.0); Triglycerides 215 mg/dL (<150)
[2025-08-01] MEDS: iohexoL 350 MG/ML 100 ML INFUS..BTL IV (12:09)
[2025-08-01 12:19] LABS: Lipase 1034 U/L (8-78)
[2025-08-01 14:36] VITALS: BP 135/52; PULSE 62; RESP 16; TEMP 36.7; O2SAT 98
--- NOTE | 2025-08-01 14:48 | PM.IMHP ---
History of Present Illness Date of Service: 08/01/25 Chief Complaint: jaundice 80-year-old woman with a history of hypertension, hypothyroidism, left bundle branch block status post dual-chamber pacemaker secondary to jaundice. Apparently the patient had noticed that the patient's skin color was yellowing the patient herself had not noticed. Her daughter saw her today and noted the change. Patient denied chest pain, abdominal pain, nausea, vomiting, diarrhea, fever, chills, recent travel. She did not notice isidra-colored stools over the last 3 or [address] showing heterogeneous hypoenhancing mass within the uncinate process of the pancreas highly concerning for primary pancreatic malignancy. Total bilirubin 17.4, AST 94, ALT 93, alk phos 349, lipase 1034. Plan will be to admit patient for further management treatment of acute pancreatitis, transaminitis and question of pancreatic mass. Review of Systems Review of Systems: Denies any recent fever chills or decrease in appetite respiratory denies any shortness of breath or cough cardiovascular denied chest pain gastrointestinal denies any dysphagia abdominal pain nausea vomiting or diarrhea genitourinary denies any dysuria frequency or hematuria musculoskeletal denies any joint pain or swelling neuropsych denies any weakness or seizures all other systems reviewed are negative [facility] Medical History Normocytic anemia Hypertension Hypothyroidism Family History (Updated 08/01/25 @ 16:18 by Anna Almeida NP) Father Colon cancer Mother Brittle diabetes mellitus Surgical History H/O: hysterectomy Social History (Updated 08/01/25 @ 16:18 by Anna Almeida NP) Household Members: None Household Members Other:: Lives alone Housing: Apartment Do you presently have visiting nurse or other home services: No Patient Tobacco Use Status: Never used Tobacco Smoked in Last 30 Days: No Use of substances other than those prescribed or required for medical reasons: No Have you been hit, kicked, punched, or otherwise hurt by someone within the past year? If so, by whom?: No Do you feel safe in your current relationship?: No Current Relationship Is there a partner from a previous relationship who is making you feel unsafe now?: No Are you made to feel afraid or neglected: No Advance Directives: No Advance Directives Information Provided: Yes Do you have a plan to hurt others: No Plan Recently lost weight without trying: No Eating poorly because of decreased appetite: No Nutrition Risks: No Nutritional Risk Patient : No : No Poor oral hygiene: No Meds Allergies Allergy/AdvReac Type Severity Reaction Status Date / Time No Known Allergies Allergy Verified 08/01/25 10:55 Home Medications ?Medication ?Instructions ?Recorded ?Confirmed ?Last Taken ?Type glucosamine sulf dipot 1 cap PO BID 08/01/25 08/01/25 08/01/25 History chlr,msm,chond 550 mg-C 30 mg-ara 1 mg capsule (Glucosamine Chondroitin) levothyroxine 100 mcg tablet 100 mcg PO DAILY 08/01/25 08/01/25 08/01/25 History metoprolol succinate 25 mg 25 mg PO DAILY 08/01/25 08/01/25 08/01/25 History tablet,extended release 24 hr multivitamin 1 tab PO DAILY 08/01/25 08/01/25 08/01/25 History Physical Exam Vital Signs and Narrative: Vital Signs: Last Vital Signs Temp 98.1 F 08/01/25 14:36 Pulse 62 08/01/25 14:36 Resp 16 08/01/25 14:36 BP 135/52 L 08/01/25 14:36 Pulse Ox 98 08/01/25 14:36 O2 Del Method Room Air 08/01/25 14:36 BMI result Body Mass Index 28.0 Appearing in no acute distress head is normocephalic atraumatic eyes pupils are PERRLA sclera is anicteric mouth throat mucous membranes are intact and moist neck is supple no lymphadenopathy, no JVD noted lung sounds are clear to auscultation heart regular rate rhythm, clear S1, S2 positive bowel sounds, abdomen is soft, nontender neuro patient is alert x3, no focal deficits Results Labs 08/01/25 11:11 08/01/25 11:11 Labs: Laboratory Results - last 24 hr 08/01/25 11:11 MCV 83.5 MCH 27.6 MCHC 33.1 RDW 18.4 H Plt Count 226 MPV 10.8 Immature Gran % (Auto) 0.7 H Neut % (Auto) 72.1 Lymph % (Auto) 16.4 L [place] % (Auto) 9.0 Eos % (Auto) 1.3 Baso % (Auto) 0.5 Lymph # (Auto) 1.0 L [place] # (Auto) 0.5 Eos # (Auto) 0.1 Baso # (Auto) 0.0 Abs Immat Gran (auto) 0.04 H Absolute Neuts (auto) 4.3 Absolute Nucleated RBC 0.000 Nucleated RBC % (auto) 0.0 PT 15.3 H INR 1.3 H Anion Gap 11 L Estim Creat Clear Calc 83.0 Estimated GFR > 60 Random Glucose 160 H Calcium 9.0 Total Bilirubin 17.4 H Direct Bilirubin 12.0 H AST 94 H ALT 93 H Alkaline Phosphatase 349 H Ammonia 22 Total Protein 6.5 Albumin 3.6 Triglycerides 215 H Lipase 1034 H Assessment and Plan (1) Pancreatic mass: Status: Acute Plan 80 year old women with hx of left bundle branch block status post dual chamber pacemaker, hypothyroidism, hypertension presenting to ER with new onset jaundice Acute transaminitis with jaundice Total bilirubin 17.4, AST 94, ALT 93, alk phos 349 Moderate upstream dilation of the intrahepatic, pancreatic and common bile ducts noted Gastroenterology consultation Unable to do MRCP due to incompatible pacemaker Pancreatitis Abdominal CT showing mass of the pancreas highly concerning for primary pancreatic malignancy Oncology consultation of light of possible malignancy check tumor markers CEA, CA 19-9 Pain management IV fluids Hypertension Stable blood pressure Hypothyroidism Continue levothyroxine Normocytic anemia stable HH check Iron profiles History of left bundle-branch block Dual-chamber pacemaker placement at [facility] in April 2025 DVT prophylaxis with heparin Full code Quality Stroke Does the patient have a stroke diagnosis?: No VTE Prior VTE?: No VTE Risk Level:: Medical - moderate - high VTE Device Contraindication: Treatment Not Indicated VTE Drug Contraindication: N/A - Med Ordered
--- NOTE | 2025-08-01 15:28 | HO.NURTONUR ---
Patient admitted with acute transminitis w/ jaundice, pancreatitis, hypertension, and hypothyroidism. Pt to get MRCP tomorrow, needs pacemaker rep in order to proceed. Oncology consult for tomorrow. IV LR running. 22 G in the right AC. Elevated bilirubin, LFTs, and lipase.
[2025-08-01] MEDS: Lactated Ringers 1,000 ML 100 ML IVCONT (15:49)
--- NOTE | 2025-08-01 16:06 | PHA.MEDREC ---
Addendum entered by Kiley Umana RPh 08/01/25 16:10: REVIEWED BY PHARMACIST, PATIENT STATES NO LONGER TAKING AMLODIPINE Original Note: Pharmacy Consult ? Medication Reconciliation Pharmacy has completed the medication reconciliation. Confirmed medication list with patient. patient claims they take a multivitamin PO QD, and a Glucosamine-Chondroitin supplement PO BID. Patient took morning doses of all medications today.
[2025-08-01 16:23] VITALS: BP 142/58; PULSE 65; RESP 18; TEMP 36.8; O2SAT 96; BMI 29.5
[2025-08-01 18:10] LABS: Carcinoembryonic Antigen 4.50 ng/mL
[2025-08-01 20:00] VITALS: BP 147/67; PULSE 68; RESP 18; TEMP 36.4; O2SAT 97
--- NOTE | 2025-08-01 20:19 | PM.EVENT ---
Event Note Date of Service: 08/01/25 Event Note: GI Consult-Full note dictated-History from patient and EMR. Imp: Obstructive jaundice due to probable pancreatic neoplasm, as well as possible component of CBD stones. Presently without any abdominal pain or signs of cholangitis. She can not have a MRI/MRCP due to a pacemaker that is reportedly not MRI compatible as per the ER staff. Rec: ERCP with planned sphincerotomy, brushings/biopsies, and biliary stent placement with me or Dr. Oreilly. Full consent obtainced from her for this, including risks of bleeding, perforation, cholangitis, and pancreatitis. D/W patient in detail and she is comfortable with this plan. Thanks Time Spent With Patient Time: Total time managing care of this patient today ____ minutes.
--- NOTE | 2025-08-01 20:37 | MHC.SHP ---
Pre-Procedural Eval Section A - 24 Hr Update-Section A only Date of Service: 08/02/25 The patient is an INPATIENT: Yes The patient has been examined within 24 hours of the surgical procedure. The History & Physical has been completed within 30 days and I have reviewed it.: Yes Section B - Complete if H&P > 30 days Chief Complaint: Transaminitis Jaundice Allergies: Allergies Allergy/AdvReac Type Severity Reaction Status Date / Time No Known Allergies Allergy Verified 08/01/25 10:55 Plan I have reviewed the history and physical and performed a pertinent physical examination on my patient. No changes have occurred unless specified. Time Spent With Patient Time: Total time managing care of this patient today ____ minutes.
[2025-08-02] VITALS (9 sets, daily range): BP systolic 124–172; BP diastolic 47–72; PULSE 60–74; RESP 12–20; TEMP 36.3–36.8; O2SAT 97–100
--- NOTE | 2025-08-02 00:45 | CONS_ITS ---
DATE OF SERVICE: 08/01/2025 REASON FOR CONSULTATION: Painless jaundice and abnormal imaging of her biliary tract. HISTORY OF PRESENT ILLNESS: This has been obtained from the patient and the medical record. The patient is a 80-year-old female who was noticed to be come jaundice by her family and was brought to the ER today. She had normal LFTs back in April prior to placement of a pacemaker. Most recently, she has not had any particular abdominal pain. However, she has noticed some darkened urine and light-colored stools. This has been going on for at least a week or 2. Today, her daughter visited her and noticed her to be jaundice, which prompted the ER visit. The patient denies any previous history of liver disease or pancreatic disease in herself or family members. She does not use any significant amounts of alcohol. She has not been on any new medication. In the ER, she was found to be markedly jaundiced both on exam and by her laboratories, and have evidence of obstructive jaundice with pancreatic mass on her CT scan. She has a pacemaker in and this was reported as not compatible with MRI and therefore MRI with MRCP could not be obtained. She presently denies any abdominal pain. She has not noticed any pruritus. She think she may have lost a little weight. She has been somewhat anorectic, but generally has been eating fairly well. She denies any dysphagia. She has not noticed any hematochezia nor melena. She denies any fevers. MEDICATIONS: At home included levothyroxine and metoprolol. PAST MEDICAL HISTORY: Hypertension. Hypothyroidism. Pacemaker placed back in April. Complete hysterectomy. She denies any history of UT, diabetes, stroke, or lung disease. SOCIAL HISTORY: She is a and lives by herself. She does not smoke nor use any significant amounts of alcohol. FAMILY HISTORY: Noncontributory. REVIEW OF SYSTEMS: CONSTITUTIONAL: She had been feeling well with fairly good appetite. SKIN: She has had jaundice, but no rash or pruritus. CARDIAC: No chest pain. PULMONARY: No coughing or hemoptysis. GI: As above. URINARY: No dysuria. No hematuria. NEUROLOGIC: No headache or seizures. PHYSICAL EXAMINATION: GENERAL: The patient is a pleasant alert, elderly female. HEENT: She has jaundice with icteric sclerae. Moist mucous membranes. NECK: Supple without lymphadenopathy. CHEST: Clear. CARDIAC: Normal S1, S2. ABDOMEN: Soft, nondistended, nontender without mass. LABORATORY DATA: Her CT scan and ultrasound both show evidence of a pancreatic mass in the uncinate process measuring approximately 3 cm. There was evidence of obstruction of the pancreatic and common bile ducts, as well as the intrahepatic ducts. Gallstones are noted in the gallbladder. Her abdominal ultrasound confirmed similar findings. Labs revealed a white count 6000, hemoglobin 11.7, platelets 226,000. PT 15.3 with INR 1.3. Normal electrolytes. BUN 12, creatinine 0.5. Total bilirubin 17.4, direct bilirubin 12.0, AST 94, ALT 93, alkaline phosphatase 349, lipase 1034. IMPRESSION: Given the patient's workup and clinical history this certainly speaks for a probable pancreatic neoplasm causing obstructive jaundice. She does have gallstones and there may be a component of choledocholithiasis as well. MRI with MRCP cannot be obtained due to her pacemaker. As such, I would recommend ERCP for further evaluation. The plan would be that of a sphincterotomy, brushings and/or biopsies, and placement of a biliary stent. Full consent has been obtained from the patient for this, including risks of bleeding, perforation, cholangitis, and pancreatitis. I did advise her that she may need further evaluation after the procedure, including endoscopic ultrasound and Oncology followup. This has all been discussed in detail with the patient, including the probability of a pancreatic neoplasm, and she is comfortable with the plan. MD TYLER Tse/SHERIN / [id number]
[2025-08-02] MEDS: Lactated Ringers 1,000 ML 100 ML IVCONT ×3 (03:18→22:59)
[2025-08-02 06:18] LABS: MANUAL DIFF FLAG NO
[2025-08-02 06:23] LABS: Hematocrit 31.5 % (37.0-47.0); Hemoglobin 10.6 g/dl (12.0-16.0); Imm Gran Abs Auto 0.03 X10*3/uL (0.00-0.03); Imm Gran Pct Auto 0.5 % (0.0-0.4); Lymphocytes Absolute Auto 1.0 X10*3/uL (1.2-4.9); Mean Corpuscular HGB Conc 33.7 g/dl (31.0-35.0); Mean Corpuscular Hemoglobin 27.7 pg (27.0-33.0); Mean Corpuscular Volume 82.2 fL (80.0-98.0); NRBC Abs Auto 0.000 X10*3/uL (0.0-0.012); NRBC Pct Auto 0.0 /100WBC (0.0-0.2); Platelet Count 212 X10*3/uL (160-400); Red Blood Count 3.83 X10*6/uL (4.20-5.50); White Blood Count 5.8 X10*3/uL (4.8-10.8)
[2025-08-02 06:46] LABS: Alanine Aminotransferase 81 U/L (0-31); Albumin Level 3.0 g/dL (3.5-5.0); Alkaline Phosphatase 287 U/L (39-117); Anion Gap 10 (12-20); Aspartate Amino Transferase 87 U/L (5-31); Blood Urea Nitrogen 12 mg/dL (9-16); Calcium 8.6 mg/dL (8.4-10.2); Carbon Dioxide 26 mmol/L (22-29); Chloride 105 mmol/L (96-108); Creatinine Clr Calc Pharmacy 83.5; Estimated Glomerular Filt Rate > 60; Iron 117 mcg/dL (30-160); Percent Iron Saturation 55 % (15-50); Potassium 3.8 mmol/L (3.3-5.1); Sodium 137 mmol/L (135-145); Total Iron Binding Capacity 214 mcg/dL (228-428); Total Protein 5.5 g/dL (6.5-8.0); Unsaturated Iron Binding 97 ug/dL
[2025-08-02 06:52] LABS: INTERNATIONAL NORM RATIO 1.2 (0.9-1.1); Prothrombin Time 14.5 SEC (11.2-13.5)
[2025-08-02 06:54] LABS: Lipase 1333 U/L (8-78)
--- NOTE | 2025-08-02 08:20 | HO.ANESPROP2 ---
Documented by User: Sophia Sadler NP 08/02/25 09:41 HPI - Anesthesia Eval Consult details Narrative: 80 yr old female for ERCP Feels well, she is active at home, moderate physical activity; denies CP, SOB, lightheadedness, or palpitations. s/p pacemaker 04/2025 presented to [facility] then transferred to [facility], 2-1 AV block with LBBB, normal PA interval consistent with level conduction disease. Now with dual-chamber pacer. Reported feeling well at her 07/29/25 [facility] cardiology f/u visit. Device check 07/16/25: Battery life 9 yrs, 4 months; RA 5.6%, RV 99.79%; upper rate 130 bpm, lower rate 60 bpm. Normal lead and device function. [facility] Active Problems Active Problems: All Active Problems Pancreatic mass (Acute) Past Medical History Medical History (Updated 08/02/25 @ 13:17 by Billie Churchill RN) Pacemaker Normocytic anemia Hypertension Hypothyroidism Family History Family History (Updated 08/01/25 @ 16:18 by Anna Almeida NP) Father Colon cancer Mother Brittle diabetes mellitus Family history of problems with anesthesia: No Surgical History Surgical History (Updated 08/02/25 @ 11:20 by Han Jamil MD) H/O: hysterectomy History of Problems with Anesthesia: No Social History Social History (Updated 08/01/25 @ 16:18 by Anna Almeida NP) Household Members: None Household Members Other:: Lives alone Housing: Apartment Do you presently have visiting nurse or other home services: No Patient Tobacco Use Status: Former Tobacco user Tobacco use type: Cigarette Smoked in Last 30 Days: No Use of substances other than those prescribed or required for medical reasons: No Currently Displaying Signs/Symptoms of Drug Intoxication Withdrawal: No Have you been hit, kicked, punched, or otherwise hurt by someone within the past year? If so, by whom?: No Do you feel safe in your current relationship?: No Current Relationship Is there a partner from a previous relationship who is making you feel unsafe now?: No Are you made to feel afraid or neglected: No Are you DNR?: No Advance Directives: No Advance Directives Information Provided: Yes Do you have a plan to hurt others: No Plan Recently lost weight without trying: No Eating poorly because of decreased appetite: No Nutrition Risks: No Nutritional Risk Patient : No : No Poor oral hygiene: No service: No Meds Allergies Allergy/AdvReac Type Severity Reaction Status Date / Time No Known Allergies Allergy Verified 08/01/25 10:55 Active Medications: Current Medications Cefotetan Disodium (Cefotetan Disodium 1 Gm Vial) 1 gm IVPUSH PREOP ONE Stop: 08/02/25 09:01 Lactated Ringer's (Lr) 1,000 mls @ 100 mls/hr IVCONT .Q10H [facility] Last Admin: 08/02/25 03:18 Dose: 100 mls/hr Indomethacin (Indomethacin 50 Mg Supp.Rect) 100 mg PA PREOP ONE Stop: 08/02/25 09:01 Levothyroxine Sodium (Levothyroxine Sodium 100 Mcg Tablet) 100 mcg PO DAILY@0600 [facility] Last Admin: 08/02/25 05:23 Dose: 100 mcg Metoprolol Succinate (Metoprolol Succinate Er 25 Mg Tab.Er.24h) 25 mg PO DAILY [facility]; Protocol Last Admin: 08/02/25 08:11 Dose: Not Given Multivitamins/Vitamin C (Multivitamin Tablet) 1 tab PO DAILY [facility] Last Admin: 08/02/25 08:11 Dose: Not Given Home Medications ?Medication ?Instructions ?Recorded ?Confirmed ?Last Taken ?Type glucosamine sulf dipot 1 cap PO BID 08/01/25 08/01/25 08/01/25 History chlr,msm,chond 550 mg-C 30 mg-ara 1 mg capsule (Glucosamine Chondroitin) levothyroxine 100 mcg tablet 100 mcg PO DAILY 08/01/25 08/01/25 08/01/25 History metoprolol succinate 25 mg 25 mg PO DAILY 08/01/25 08/01/25 08/01/25 History tablet,extended release 24 hr multivitamin 1 tab PO DAILY 08/01/25 08/01/25 08/01/25 History Exam Height,Weight and Vital Signs: Height 5 ft 2 in Weight 73.2 kg Last Vital Signs Temp 97.7 F 08/02/25 08:00 Pulse 68 08/02/25 08:00 Resp 16 08/02/25 08:00 BP 124/64 08/02/25 08:00 Pulse Ox 99 08/02/25 08:00 O2 Del Method Room Air 08/02/25 08:00 Pertinent Lab Results Pertinent Lab Results: Laboratory Tests 08/01/25 08/01/25 08/02/25 11:11 16:21 05:15 WBC 6.0 5.8 RBC 4.24 3.83 L Hgb 11.7 L 10.6 L Hct 35.4 L 31.5 L MCV 83.5 82.2 MCH 27.6 27.7 MCHC 33.1 33.7 RDW 18.4 H 18.9 H Plt Count 226 212 MPV 10.8 11.8 Immature Gran % (Auto) 0.7 H 0.5 H Neut % (Auto) 72.1 68.8 Lymph % (Auto) 16.4 L 17.4 L [place] % (Auto) 9.0 10.7 Eos % (Auto) 1.3 2.1 Baso % (Auto) 0.5 0.5 Lymph # (Auto) 1.0 L 1.0 L [place] # (Auto) 0.5 0.6 Eos # (Auto) 0.1 0.1 Baso # (Auto) 0.0 0.0 Abs Immat Gran (auto) 0.04 H 0.03 Absolute Neuts (auto) 4.3 4.0 Absolute Nucleated RBC 0.000 0.000 Nucleated RBC % (auto) 0.0 0.0 Hold Purple Top SEE NOTE PT 15.3 H 14.5 H INR 1.3 H 1.2 H Sodium 134 L 137 Potassium 3.7 3.8 Chloride 103 105 Carbon Dioxide 24 26 Anion Gap 11 L 10 L BUN 12 12 Creatinine 0.51 0.52 Estim Creat Clear Calc 83.0 83.5 Estimated GFR > 60 > 60 Random Glucose 160 H Fasting Glucose 127 H Calcium 9.0 8.6 Iron 117 TIBC 214 L % Saturation 55 H Unsat Iron Binding 97 Total Bilirubin 17.4 H 16.0 H Direct Bilirubin 12.0 H 11.1 H AST 94 H 87 H ALT 93 H 81 H Alkaline Phosphatase 349 H 287 H Ammonia 22 Total Protein 6.5 5.5 L Albumin 3.6 3.0 L Triglycerides 215 H Lipase 1034 H 1333 H Carcinoembryonic Ag 4.50 Narrative Narrative: ECHO 04/2025 Conclusions: - Normal left ventricular size and systolic function. There is mildly increased left ventricular wall thickness. The visually estimated ejection fraction is between 55-60%. - Normal right ventricular cavity size and systolic function. - The left atrium is moderately dilated. - There is mild to moderate mitral valve regurgitation. EKG 04/2025 *pre pacemaker Vent. Rate : 37 BPM Atrial Rate : 37 BPM P-R Int : 178 ms QRS Dur : 156 ms QT Int : 522 ms P-R-T Axes : 36 0 69 degrees QTcB Int : 409 ms 2:1 AV bliock Left bundle branch block Abnormal ECG When compared with ECG of 21-May-2025 10:29, No significant changes seen EKG 07/29/25 at [facility] Atrial sensed ventricular paced rhythm, rate 76 Assessment and Plan Final Anesthetic Review Family History of Problems with Anesthesia: No History of Problems with Anesthesia: No Documented by User: Jluis Leblanc MD 08/02/25 21:31 [facility] Past Medical History Medical History (Updated 08/02/25 @ 13:17 by Billie Churchill RN) Pacemaker Normocytic anemia Hypertension Hypothyroidism Family History Family History (Updated 08/01/25 @ 16:18 by Anna Almeida NP) Father Colon cancer Mother Brittle diabetes mellitus Surgical History Surgical History (Updated 08/02/25 @ 11:20 by Han Jamil MD) H/O: hysterectomy Social History Social History (Updated 08/01/25 @ 16:18 by Anna Almeida NP) Household Members: None Household Members Other:: Lives alone Housing: Apartment Do you presently have visiting nurse or other home services: No Patient Tobacco Use Status: Former Tobacco user Tobacco use type: Cigarette Smoked in Last 30 Days: No Use of substances other than those prescribed or required for medical reasons: No Currently Displaying Signs/Symptoms of Drug Intoxication Withdrawal: No Have you been hit, kicked, punched, or otherwise hurt by someone within the past year? If so, by whom?: No Do you feel safe in your current relationship?: No Current Relationship Is there a partner from a previous relationship who is making you feel unsafe now?: No Are you made to feel afraid or neglected: No Are you DNR?: No Advance Directives: No Advance Directives Information Provided: Yes Do you have a plan to hurt others: No Plan Recently lost weight without trying: No Eating poorly because of decreased appetite: No Nutrition Risks: No Nutritional Risk Patient : No : No Poor oral hygiene: No service: No Meds Allergies Allergy/AdvReac Type Severity Reaction Status Date / Time No Known Allergies Allergy Verified 08/01/25 10:55 Home Medications ?Medication ?Instructions ?Recorded ?Confirmed ?Last Taken ?Type glucosamine sulf dipot 1 cap PO BID 08/01/25 08/01/25 08/01/25 History chlr,msm,chond 550 mg-C 30 mg-ara 1 mg capsule (Glucosamine Chondroitin) levothyroxine 100 mcg tablet 100 mcg PO DAILY 08/01/25 08/01/25 08/01/25 History metoprolol succinate 25 mg 25 mg PO DAILY 08/01/25 08/01/25 08/01/25 History tablet,extended release 24 hr multivitamin 1 tab PO DAILY 08/01/25 08/01/25 08/01/25 History Exam Airway Mallampati Class: II TM Dist: <=3cm Neck ROM: Full Denture: Upper and Lower Heart: ok Lungs: ok Assessment and Plan Assessment Anesthesia Assessment: Anesthesia Plan Discussed and Chart Reviewed Final Anesthetic Review NPO: Yes ASA Class: III Final Preanesthetic Review: No Changes in Pt Med Stat, Meds/Allgs Chart Reviewed, Consent Obtained/Reviewed and Anes Risks/Benef Reviewed Patient Risk: Intermediate Procedure Risk: Intermediate Anesthetic Plan Anesthetic Plan: GA and Agree w/ Assess. and Plan Disposition: Standard PACU
--- NOTE | 2025-08-02 11:03 | P.CNHO_ITS ---
Subjective - Subjective Chief complaint: Consult for: Pancreatic mass. Patient: new to practice Consult date: 08/02/25 Requesting Physician: Dr. Benton. Primary Care Provider: Scott Rodriguez DO, MD Family Provider: Scott Rodriguez DO, MD Medical Summary: DIAGNOSIS: Obstructive jaundice. Pancreatic mass. Bag Sorter Utilized?: No - Divehi Speaking HPI - Consult Narrative Reason for consult: Consult for: Obstructive jaundice. Pancreatic mass. Narrative: Deisy Salomon is a 80 year old delightful lady, admitted with obstructive jaundice. Database: 08/01. LFTs: Bilirubin 17.4, direct bili 12, AP 349, AST 94, ALT 93. CEA: 4.50. Lipase: 1034. CA 19-9: Pending. 08/02. LFTs: Bilirubin 16, direct bili 11, AP 27, AST 87, ALT 81. Lipase: 1333. 08/01. Ultrasound of the abdomen revealed: 1. Hypoechoic irregular lesion within the uncinate process of the pancreas measuring 4 x 2.7 x 3.4 cm with associated upstream pancreatic, common bile duct and intrahepatic ductal dilation. Findings are highly concerning for pancreatic malignancy until proven otherwise. Further evaluation with multiphase CT or MRI should be considered. 2. Moderate cholelithiasis without definite sonographic findings to suggest acute cholecystitis. 08/01. Cat scan of the abdomen revealed: 1. Heterogeneous hypoenhancing mass within the uncinate process of the pancreas highly concerning for primary pancreatic malignancy. Moderate upstream dilation of the intrahepatic, pancreatic and common bile ducts. 2. Distended gallbladder containing several layering stones without definite CT evidence to suggest acute cholecystitis. PRESENTING HISTORY: She herself did not notice any on usual symptoms, however her daughter came in and saw that she looked yellow. She was advised to go to the hospital. She denies any obvious abdominal pain nausea vomiting no diarrhea. Her stool color is a bit off white. PAST MEDICAL HISTORY: 1. Pacemaker placement: In April at [facility]. PAST SURGICAL HISTORY: 1. Hysterectomy 40 years ago for fibroids and bleeding. 2. Varicose vein rupture: Required blood transfusion. FAMILY HISTORY: Mom had diabetes and heart trouble. Dad had colon cancer x2. First time in his 70s and 2nd time in his 90s. No known history of pancreatic cancer breast cancer. 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 She is . Has 3 daughters. She smoked in her 20s. Denies alcohol. ROS: Denies easy fatigability. No fever chills or night sweats appetite is a bit low over the past couple of weeks. She denies weight loss. No headache no dizziness. She denies chest pain or trouble breathing. She has had no abdominal pain nausea vomiting heartburn indigestion. Bowels are working. Stool has been rather whitish. She denies any gross blood in the stools. She had a colonoscopy a year ago in [place]. No dysuria nor hematuria. Urine color is a bit dark. Denies any joint pain or muscle pain. No focal weakness. She denies any history of depression. No skin rashes, she does have occasional itching. Review of Systems - Constitutional Reports no additional constitutional complaints - Eyes Reports no additional eye complaints - ENT Reports no additional ear, nose, mouth, and throat complaints - Cardiovascular Reports no additional cardiovascular complaints - Respiratory Reports no additional respiratory complaints - Gastrointestinal Reports no additional gastrointestinal complaints - Genitourinary Reports no additional female genitourinary complaints - Musculoskeletal Reports no additional musculoskeletal complaints - Integumentary/Breasts Skin/Breast: Reports no additional skin complaints - Neurologic Reports no additional neurologic complaints - Psychiatric Reports no additional psychiatric complaints - Endocrine Reports no additional endocrine complaints - Hematologic/Lymphatic Reports no additional hematologic/lymphatic complaints - Allergic/Immunologic Reports no additional allergic/immunologic complaints Oncology Screenings - ECOG Performance Status ECOG Performance Status: 0 [facility] Medical History: Medical History (Last Updated 08/02/25 @ 13:17 by Billie Churchill RN) Hypertension Hypothyroidism Normocytic anemia Pacemaker Functional capacity: independent ambulation Patient : No Family History: Family History (Last Updated 08/01/25 @ 16:18 by Anna Almeida NP) Father Colon cancer Mother Brittle diabetes mellitus Surgical History: Surgical History (Last Reviewed 08/01/25 @ 17:34 by Jay Duffy RN) H/O: hysterectomy Social History: Social History (Last Updated 08/01/25 @ 16:18 by Anna Almeida NP) Living Situation History: Household Members: None Household Members Other:: Lives alone Housing: Apartment Do you presently have visiting nurse or other home services: No Alcohol History Details: 1. How often do you have a drink containing alcohol?: a. Never AUDIT-C Alcohol total score: 0 Currently Displaying Signs/Symptoms of Alcohol Withdrawal: No Tobacco History: Patient Tobacco Use Status: Former Tobacco user Tobacco use type: Cigarette Smoked in Last 30 Days: No Substance Use History: Use of substances other than those prescribed or required for medical reasons : No Currently Displaying Signs/Symptoms of Drug Intoxication Withdrawal: No Domestic Abuse History: Have you been hit, kicked, punched, or otherwise hurt by someone within the past year? If so, by whom?: No Do you feel safe in your current relationship?: No Current Relationship Is there a partner from a previous relationship who is making you feel unsafe now?: No Are you made to feel afraid or neglected: No Advance Directives: Advance Directives: No Advance Directives Information Provided: Yes Homicidal Assessment: Do you have a plan to hurt others: No Plan Nutrition Assessment: Recently lost weight without trying: No Eating poorly because of decreased appetite: No Nutrition Risks: No Nutritional Risk Patient : No : No Poor oral hygiene: No Occupation Assessmet: service: No Home Medications and Allergies Current Medications: Current Medications Lactated Ringer's (Lr) 1,000 mls @ 100 mls/hr IVCONT .Q10H [facility] Last Admin: 08/02/25 03:18 Dose: 100 mls/hr Levothyroxine Sodium (Levothyroxine Sodium 100 Mcg Tablet) 100 mcg PO DAILY@0600 [facility] Last Admin: 08/02/25 05:23 Dose: 100 mcg Metoprolol Succinate (Metoprolol Succinate Er 25 Mg Tab.Er.24h) 25 mg PO DAILY [facility]; Protocol Last Admin: 08/02/25 08:11 Dose: Not Given Multivitamins/Vitamin C (Multivitamin Tablet) 1 tab PO DAILY [facility] Last Admin: 08/02/25 08:11 Dose: Not Given Home Medications ?Medication ?Instructions ?Recorded ?Confirmed ?Type glucosamine sulf dipot 1 cap PO BID 08/01/25 08/01/25 History chlr,msm,chond 550 mg-C 30 mg-ara 1 mg capsule (Glucosamine Chondroitin) levothyroxine 100 mcg tablet 100 mcg PO DAILY 08/01/25 08/01/25 Histo ry metoprolol succinate 25 mg 25 mg PO DAILY 08/01/25 08/01/25 History tablet,extended release 24 hr multivitamin 1 tab PO DAILY 08/01/25 08/01/25 History Allergies Allergy/AdvReac Type Severity Reaction Status Date / Time No Known Allergies Allergy Verified 08/01/25 10:55 Physical Exam Vital signs: Vital Signs Temp 97.7 F 08/02/25 08:00 Pulse 68 08/02/25 08:00 Resp 16 08/02/25 08:00 BP 124/64 08/02/25 08:00 Pulse Ox 99 08/02/25 08:00 O2 Del Method Room Air 08/02/25 08:00 Intake & Output 08/01/25 08/02/25 08/02/25 18:59 06:59 18:59 Intake Total 1050.5 / 1050.5 Balance 1050.5 / 1050.5 Intake: Intake, IV Amount 1050.5 / 1050.5 Phytonadione (Vit K1) 5 mg In 0 50.5 / 50.5 .9 % Sodium Chloride 50 ml @ 50 .5 mls/hr IV ONCE ONE Rx#: [id number] Lactated Ringers 1,000 ml @ 100 1000 / 1000 mls/hr IVCONT .Q10H [facility] Rx#: [id number] Other: Number of Unmeasured Voids 1 Urine Bathroom Urine Color Yellow Last Bowel Movement 08/02/25 Weight 73.2 kg Weight 73.2 kg - Constitutional Present: mild distress - Routine HEENT Exam Head: Present: normal inspection, normocephalic Eye: Present: PERRL, scleral icterus ENT: Present: mucous membranes moist - Routine Neck Exam Present: supple - Routine Respiratory Exam Present: CTAB - Routine Cardiovascular Exam Cardiovascular: Present: RRR, S1, S2 - Routine Abdominal Exam Present: soft, tenderness - Routine Extremities Exam Present: nontender - Routine Skin Exam Present: intact Hem/Onc Consult Result - Labs CBC & Chem 7: 08/03/25 06:10 08/04/25 06:23 Labs: Short CBC 08/01/25 08/02/25 Range/Units 11:11 05:15 WBC 6.0 5.8 (4.8-10.8) X10*3/uL Hgb 11.7 L 10.6 L (12.0-16.0) g/dl Hct 35.4 L 31.5 L (37.0-47.0) % Plt Count 226 212 (160-400) X10*3/uL BMP 08/01/25 08/02/25 11:11 05:15 Sodium 134 L 137 Potassium 3.7 3.8 Chloride 103 105 Carbon Dioxide 24 26 BUN 12 12 Creatinine 0.51 0.52 Calcium 9.0 8.6 Liver Function 08/01/25 08/02/25 Range/Units 11:11 05:15 Total Bilirubin 17.4 H 16.0 H (0.0-1.0) mg/dL Direct Bilirubin 12.0 H 11.1 H (0.0-0.5) mg/dL AST 94 H 87 H (5-31) U/L ALT 93 H 81 H (0-31) U/L Alkaline Phosphatase 349 H 287 H (39-117) U/L Albumin 3.6 3.0 L (3.5-5.0) g/dL Assessment and Plan Patient Active problem list reviewed?: Yes (1) Pancreatic mass Status: Acute Assessment and plan: 80-year-old lady presented with obstructive jaundice. She was clinically asymptomatic however her daughter noted yellowness of her skin and sclerae. Database: 08/01. LFTs: Bilirubin 17.4, direct bili 12, AP 349, AST 94, ALT 93. CEA: 4.50. Lipase: 1034. CA 19-9: Pending. 08/02. LFTs: Bilirubin 16, direct bili 11, AP 27, AST 87, ALT 81. Lipase: 1333. 08/01. Ultrasound of the abdomen revealed: 1. Hypoechoic irregular lesion within the uncinate process of the pancreas measuring 4 x 2.7 x 3.4 cm with associated upstream pancreatic, common bile duct and intrahepatic ductal dilation. Findings are highly concerning for pancreatic malignancy until proven otherwise. Further evaluation with multiphase CT or MRI should be considered. 2. Moderate cholelithiasis without definite sonographic findings to suggest acute cholecystitis. 08/01. Cat scan of the abdomen revealed: 1. Heterogeneous hypoenhancing mass within the uncinate process of the pancreas highly concerning for primary pancreatic malignancy. Moderate upstream dilation of the intrahepatic, pancreatic and common bile ducts. 2. Distended gallbladder containing several layering stones without definite CT evidence to suggest acute cholecystitis. I explained to her my concerns that she has underlying pancreatic carcinoma. An MRCP could not be done since she has had a pacemaker placed. I reviewed the plan with her and her daughter, at bedside. Ca 19/9: 617. CEA: 4.50. PLAN: To proceed with ERCP with sphincterotomy and brushings to obtain tissue diagnosis. Stent will be placed. This is scheduled for later on today. Will make further plan based upon the above findings. Thank you for the consult, CC: Dr. Scott Rodriguez. Addendum: ERCP findings: Malignant biliary structure c/w her presumed pancreatic cancer. Pathology: Pending. 08/04: Meanwhile the LFTs are trending downwards. 10.6/313/109/87. 08/03: 15.3/313/89/74. She will be going home later today. I will see her back as an out patient, once the pathology is back, for further suggestion. Thanks, \ - Time Spent With Patient Time Spent with Patient (in minutes): 30
--- NOTE | 2025-08-02 12:29 | HO.PM.IMPN ---
Subjective Subjective Date of Service: 08/02/25 Interval History: no abd pain jaundiced Review of Systems Review of Systems: Yes all other systems are reviewed and are negative Physical Exam Vital Signs: Vital Signs: Last Vital Signs Temp 97.7 F 08/02/25 08:00 Pulse 68 08/02/25 08:00 Resp 16 08/02/25 08:00 BP 124/64 08/02/25 08:00 Pulse Ox 99 08/02/25 08:00 O2 Del Method Room Air 08/02/25 08:00 BMI result Body Mass Index 29.5 Gen: in no acute distress HEENT: sclera icteric, moist mucus membranes Neck: supple Lungs: clear to auscultation bilaterally Heart: regular rate and rhythm, no murmurs Abd: soft, non-tender, non-distended Ext: no edema Skin: warm/well-perfused, jaundiced Neuro: alert and oriented x3, no focal findings Psych: appropriate affect Objective Data Active Medications Lactated Ringer's (Lr) 1,000 mls @ 100 mls/hr IVCONT .Q10H [facility] Last Admin: 08/02/25 03:18 Dose: 100 mls/hr Documented By: CHARITY Levothyroxine Sodium (Levothyroxine Sodium 100 Mcg Tablet) 100 mcg PO DAILY@0600 [facility] Last Admin: 08/02/25 05:23 Dose: 100 mcg Documented By: CHARIYT Metoprolol Succinate (Metoprolol Succinate Er 25 Mg Tab.Er.24h) 25 mg PO DAILY [facility]; Protocol Last Admin: 08/02/25 08:11 Dose: Not Given Documented By: JOHN Non-Admin Reason: NPO Multivitamins/Vitamin C (Multivitamin Tablet) 1 tab PO DAILY [facility] Last Admin: 08/02/25 08:11 Dose: Not Given Documented By: JOHN Non-Admin Reason: NPO Labs 08/02/25 05:15 08/02/25 05:15 Labs: Laboratory Results - last 24 hr 08/01/25 08/02/25 16:21 05:15 MCV 82.2 MCH 27.7 MCHC 33.7 RDW 18.9 H Plt Count 212 MPV 11.8 Immature Gran % (Auto) 0.5 H Neut % (Auto) 68.8 Lymph % (Auto) 17.4 L [place] % (Auto) 10.7 Eos % (Auto) 2.1 Baso % (Auto) 0.5 Lymph # (Auto) 1.0 L [place] # (Auto) 0.6 Eos # (Auto) 0.1 Baso # (Auto) 0.0 Abs Immat Gran (auto) 0.03 Absolute Neuts (auto) 4.0 Absolute Nucleated RBC 0.000 Nucleated RBC % (auto) 0.0 Hold Purple Top SEE NOTE PT 14.5 H INR 1.2 H Anion Gap 10 L Estim Creat Clear Calc 83.5 Estimated GFR > 60 Fasting Glucose 127 H Calcium 8.6 Iron 117 TIBC 214 L % Saturation 55 H Unsat Iron Binding 97 Total Bilirubin 16.0 H Direct Bilirubin 11.1 H AST 87 H ALT 81 H Alkaline Phosphatase 287 H Total Protein 5.5 L Albumin 3.0 L Lipase 1333 H Carcinoembryonic Ag 4.50 Assessment and Plan (1) Pancreatic mass: Status: Acute Plan d2, 80yo F with LBBB s/p PPM, HTN, and hypothyroidism presenting with painless jaundice, found to have mass of uncinate process of pancreas with CBD dilation pancreatic mass obstructive jaundice - GI consulted, plan ERCP with sphincterotomy, brushings and/or biopsies, and placement of a biliary stent today - recheck LFTs tomorrow - Oncology consulted, awaiting tissue diagnosis elevated lipase - suspect due to mass, not pancreatitis; advance diet after ERCP normocytic anemia - likely anemia of chronic disease HTN: metoprolol succinate hypothyroidism: LT4 VTE ppx: SCDs dispo: eventual home In my clinical judgment, the patient requires continued inpatient hospitalization for the following reasons: EGD/ERCP Total time managing care of this patient today: 35 minutes. Quality Stroke Does the patient have a stroke diagnosis?: No VTE Prior VTE?: No VTE Risk Level:: Medical - moderate - high VTE Device Contraindication: Treatment Not Indicated VTE Drug Contraindication: N/A - Med Ordered
[2025-08-02] MEDS: Lactated Ringers 1,000 ML 50 ML IVCONT (14:09)
--- NOTE | 2025-08-02 15:03 | MHC.CM.PN ---
PT REPORTS SHE LIVES ALONE AND IS INDEPENDENT WITH CARE SHE HAS NO DME OR SERVICES SHE COMPLETED A HCP TODAY NAMING NATALY AROLDO [phone], HER AGENT PCP: IVON VEGA IMM DELIVERED DCP: HOME PTS CAR IS IN LOT, BUT FAMILY WILL TRANSPORT IF SHE IS NOT FEELING WELL ENOUGH
--- NOTE | 2025-08-02 22:09 | P.BOP_ITS ---
Brief Operative Note Date of Service: 08/02/25 Pre-op diagnosis: Obstructive jaundice Post-op diagnosis: other (Distal biliary stricture) Procedure: ERCP with sphincterotomy, brushings of distal biliary stricture, and placement of a 10Fr, 7cm biliary stent Surgeon: Pieter Soria MD Anesthesia: MAC Was an Accountant Controller used for this Procedure?: No Estimated blood loss (mL): 2.0 Pathology: other (A, Brushings of distal biliary stricture) Condition: stable Disposition: PACU
--- NOTE | 2025-08-02 22:12 | P.EN_ITS ---
Event Note Date of Service: 08/02/25 Event Note: [id number] note dictated Findings: 1. Normal major papilla but with with some blood coming from it intermittently on a spontaneous basis 2. Selective cannulation of the bile duct was obtained over an angled guide wire after a several mm precut sphincteromy. Selective cholangiograms revealed a markedly dilated extrahepatic bile duct and mildly dilated intrahepatic ducts with a several cm distal biliary stricture with a shelf-like component c/w neoplasm.There were no filling defects in the CBD. 3. Performed an approx 8-10mm sphincterotomy over an angled guide wire 4. Obtained brushings of the distal biliary stricture over the guide wire 5. Placed a 10 Guyanese, 7cm biliary stent over the guide wire with good positioning above and below the stricture. There was a gush of black bile, but no purulence. There was excellent drainage of bile and dye from the stent. 6. The pancreatic duct was cannulated with the wire but no dye was injected into the PD Imp: Malignant biliary structure c/w her presumed pancreatic cancer Rec: Check cytology and CA 19-9 level. F/U labs in AM. Clear liquids tonight and advance diet on 08/03 if stable. Await Oncology recs. Can arrange an EUS at [facility] if that would be helpful for staging and to assess surgical candidacy. No blood thinners for at least 1 week--aspirin, NSAIDs, Lovenox, SQ heparin, etc. D/W daughter, Jeni, in detail. Thanks Time Spent With Patient Time: Total time managing care of this patient today ____ minutes.
--- NOTE | 2025-08-03 01:27 | OP_ITS ---
DATE OF SERVICE: 08/02/2025 SURGEON: Pieter Soria MD INDICATIONS: The patient presents for evaluation of obstructive jaundice and suspicion of pancreatic cancer. Full consent has been obtained from the patient and her family for this, including risks of bleeding, perforation, cholangitis, and pancreatitis. PREOPERATIVE DIAGNOSIS: Obstructive jaundice. POSTOPERATIVE DIAGNOSIS: PROCEDURE PERFORMED: ERCP with sphincterotomy, brushings of distal biliary stricture, and placement of a 10-South African, 7 cm biliary stent. ESTIMATED BLOOD LOSS: COMPLICATIONS: ANESTHESIA: General anesthesia, glucagon 0.5 mg IV x 2 doses. ASSISTANTS: SPECIMENS: POSTOPERATIVE DIAGNOSES: Obstructive jaundice, distal biliary stricture consistent with neoplasm. DESCRIPTION OF PROCEDURE: The patient was placed in the semiprone position. The [employer] video duodenoscope was passed in the posterior oropharynx and upper esophagus. The scope was advanced into the stomach and to the pylorus. The duodenum was cannulated to the descending portion. The major papilla appeared basically normal although there was some spontaneous oozing of blood from the papilla spontaneously at times. There was some mild bulging of the papilla. There was no mass or ulceration. Initial attempts at cannulation with a straight guidewire and the [employer] triple lumen sphincterotome yielded entry into the pancreatic duct judging fluoroscopically. At that point, I performed a several millimeter precut sphincterotomy with the sphincterotome angled at the 12 o'clock position. Once that was accomplished, I then obtained a selective cannulation of the biliary tree with an angled guidewire. At that point, I was able to obtain deep and selective cannulation of the biliary tree with the guidewire and the sphincterotome. Selective cholangiograms revealed good filling of both the intrahepatic and extrahepatic bile ducts with a markedly dilated extrahepatic bile duct noted. There were no filling defects. The intrahepatic ducts filled well and there was some mild dilatation. The distal bile duct was notable for a several centimeter stricture with a shelf like component consistent with neoplasm. I extended the sphincterotomy to a total of approximately 8 to 10 mm. At that point, I did a wire exchange to advance the cytology brush into the bile duct. I then obtained brushings of the distal biliary stricture. With the guidewire still in place, I then placed a 10-South African, 7 cm biliary stent in good position both above and below the stricture. With good deployment noted, there was excellent flow of bile and contrast into the duodenum with initial gush of black bile. There was no purulence. With suction I was able to clear the majority of the contrast from the biliary tree. The stent was working well with good flow of bile noted. Of note, the pancreas was never injected with dye, although again the wire did enter the pancreas several times prior to obtaining selective biliary cannulation. At that point the scope was withdrawn from the patient. She tolerated the procedure well. She was extubated in the OR and transferred to the recovery area in stable condition. IMPRESSION: Presumed malignant distal biliary stricture secondary to pancreatic cancer, status post sphincterotomy, brushings, and placement of a 10-South African, 7 cm biliary stent with good drainage. PLAN: The patient will be observed overnight. The results of the cytology and the CA 19-9 level will be checked. She will have followup laboratories in the morning. She can start clear liquids tonight and then have her diet advanced tomorrow if stable. She should avoid all blood thinners such as aspirin NSAIDs, Lovenox, and SQ heparin, completely for at least a week. She has already been seen by Oncology, and we shall await their recommendations. She may require an endoscopic ultrasound for further staging prior to treatment if we want to consider any type of surgical intervention. This has all been discussed with her family, including her daughter, Jeni, this evening. MD TYLER Tse/SHERIN / [phone] MTDD
[2025-08-03 03:34] VITALS: BP 156/71; PULSE 64; RESP 18; TEMP 36.5; O2SAT 100
[2025-08-03] MEDS: Lactated Ringers 1,000 ML 100 ML IVCONT (05:48)
[2025-08-03 06:31] LABS: MANUAL DIFF FLAG NO
[2025-08-03 06:41] LABS: Hematocrit 33.0 % (37.0-47.0); Hemoglobin 11.2 g/dl (12.0-16.0); Imm Gran Abs Auto 0.03 X10*3/uL (0.00-0.03); Imm Gran Pct Auto 0.4 % (0.0-0.4); Lymphocytes Absolute Auto 1.2 X10*3/uL (1.2-4.9); Mean Corpuscular HGB Conc 33.9 g/dl (31.0-35.0); Mean Corpuscular Hemoglobin 27.7 pg (27.0-33.0); Mean Corpuscular Volume 81.7 fL (80.0-98.0); NRBC Abs Auto 0.000 X10*3/uL (0.0-0.012); NRBC Pct Auto 0.0 /100WBC (0.0-0.2); Platelet Count 209 X10*3/uL (160-400); Red Blood Count 4.04 X10*6/uL (4.20-5.50); White Blood Count 7.0 X10*3/uL (4.8-10.8)
[2025-08-03 07:24] LABS: Alanine Aminotransferase 74 U/L (0-31); Albumin Level 2.8 g/dL (3.5-5.0); Alkaline Phosphatase 313 U/L (39-117); Anion Gap 14 (12-20); Aspartate Amino Transferase 89 U/L (5-31); Blood Urea Nitrogen 13 mg/dL (9-16); Calcium 8.6 mg/dL (8.4-10.2); Carbon Dioxide 24 mmol/L (22-29); Chloride 102 mmol/L (96-108); Creatinine Clr Calc Pharmacy 76.2; Estimated Glomerular Filt Rate > 60; Potassium 3.7 mmol/L (3.3-5.1); Sodium 136 mmol/L (135-145); Total Protein 5.3 g/dL (6.5-8.0)
[2025-08-03 07:38] VITALS: BP 152/69; PULSE 76; RESP 18; TEMP 36.7; O2SAT 96
[2025-08-03] MEDS: Metoprolol Succinate ER 25 MG TAB.ER.24H PO (08:12)
--- NOTE | 2025-08-03 08:15 | HO.POSTANES ---
Post Anesthesia Evaluation Post Anesthesia Evaluation Date of Service: 08/03/25 Vital Signs: Vital Signs Temp Pulse Resp BP Pulse Ox O2 Del Method 08/03/25 07:38 98.1 F 76 18 152/69 H 96 Room Air 08/03/25 03:34 97.7 F 64 18 156/71 H 100 Room Air 08/02/25 22:53 97.4 F 62 16 165/72 H 98 Room Air 08/02/25 22:35 98.2 F 63 16 147/56 H 99 Room Air 08/02/25 22:25 60 13 142/51 H 98 Room Air 08/02/25 22:20 60 12 139/53 L 98 Room Air 08/02/25 22:15 97.8 F 60 14 136/53 L 97 Room Air 08/02/25 22:12 98.1 F 74 20 127/47 L 100 Room Air Anesthesia: General Mental Status: Awake Pain Control: Satisfactory Nausea/Vomiting: None Hydration: Adequate Anesthesia-Related Issues: No Anes. Related Issues
--- NOTE | 2025-08-03 11:49 | HO.PM.IMPN ---
Subjective Subjective Date of Service: 08/03/25 Interval History: POD1 ERCP tolerating clear liquids no abd pain Tbili appears to have plateaued Review of Systems Review of Systems: Yes all other systems are reviewed and are negative Physical Exam Vital Signs: Vital Signs: Last Vital Signs Temp 98.1 F 08/03/25 07:38 Pulse 76 08/03/25 07:38 Resp 18 08/03/25 07:38 BP 152/69 H 08/03/25 07:38 Pulse Ox 96 08/03/25 07:38 O2 Del Method Room Air 08/03/25 07:38 BMI result Body Mass Index 29.5 Gen: in no acute distress HEENT: sclera icteric, moist mucus membranes Neck: supple Lungs: clear to auscultation bilaterally Heart: regular rate and rhythm, no murmurs Abd: soft, non-tender, non-distended Ext: no edema Skin: warm/well-perfused, jaundiced Neuro: alert and oriented x3, no focal findings Psych: appropriate affect Objective Data Active Medications Levothyroxine Sodium (Levothyroxine Sodium 100 Mcg Tablet) 100 mcg PO DAILY@0600 [facility] Last Admin: 08/03/25 05:47 Dose: 100 mcg Documented By: CHARITY Metoprolol Succinate (Metoprolol Succinate Er 25 Mg Tab.Er.24h) 25 mg PO DAILY [facility]; Protocol Last Admin: 08/03/25 08:12 Dose: 25 mg Documented By: JOHN Multivitamins/Vitamin C (Multivitamin Tablet) 1 tab PO DAILY [facility] Last Admin: 08/03/25 08:12 Dose: 1 tab Documented By: JOHN Naloxone HCl (Naloxone Hcl 0.4 Mg/Ml Vial) 0.04 mg IVPUSH Q5M PRN PRN Reason: Excessive sedation or RR < 8 Labs 08/03/25 06:10 08/03/25 06:10 Labs: Laboratory Results - last 24 hr 08/03/25 06:10 MCV 81.7 MCH 27.7 MCHC 33.9 RDW 18.9 H Plt Count 209 MPV 11.0 Immature Gran % (Auto) 0.4 Neut % (Auto) 70.6 Lymph % (Auto) 16.4 L [place] % (Auto) 11.4 H Eos % (Auto) 0.9 Baso % (Auto) 0.3 Lymph # (Auto) 1.2 [place] # (Auto) 0.8 Eos # (Auto) 0.1 Baso # (Auto) 0.0 Abs Immat Gran (auto) 0.03 Absolute Neuts (auto) 5.0 Absolute Nucleated RBC 0.000 Nucleated RBC % (auto) 0.0 Anion Gap 14 Estim Creat Clear Calc 76.2 Estimated GFR > 60 Random Glucose 97 Fasting Glucose 97 Calcium 8.6 Total Bilirubin 15.3 H Direct Bilirubin 10.8 H AST 89 H ALT 74 H Alkaline Phosphatase 313 H Total Protein 5.3 L Albumin 2.8 L Assessment and Plan (1) Pancreatic mass: Status: Acute Plan d3, 80yo F with LBBB s/p PPM, HTN, and hypothyroidism presenting with painless jaundice, found to have mass of uncinate process of pancreas with CBD dilation pancreatic mass obstructive jaundice - Dr Soria, consulted, ERCP done 08/02: '1. Normal major papilla but with with some blood coming from it intermittently on a spontaneous basis 2. Selective cannulation of the bile duct was obtained over an angled guide wire after a several mm precut sphincteromy. Selective cholangiograms revealed a markedly dilated extrahepatic bile duct and mildly dilated intrahepatic ducts with a several cm distal biliary stricture with a shelf-like component c/w neoplasm.There were no filling defects in the CBD. 3. Performed an approx 8-10mm sphincterotomy over an angled guide wire 4. Obtained brushings of the distal biliary stricture over the guide wire 5. Placed a 10 German, 7cm biliary stent over the guide wire with good positioning above and below the stricture. There was a gush of black bile, but no purulence. There was excellent drainage of bile and dye from the stent. 6. The pancreatic duct was cannulated with the wire but no dye was injected into the PD Imp: Malignant biliary structure c/w her presumed pancreatic cancer' - advance to solid diet, recheck LFTs tomorrow - will need outpt follow up with Oncology; GI to arrange EUS as well - no blood thinners for 1 wk - CA19.9 pending elevated lipase - suspect due to mass, not pancreatitis; advance diet after ERCP normocytic anemia - likely anemia of chronic disease HTN: metoprolol succinate hypothyroidism: LT4 VTE ppx: SCDs dispo: eventual home In my clinical judgment, the patient requires continued inpatient hospitalization for the following reasons: advancing diet after ERCP, obstructive jaundice Total time managing care of this patient today: 35 minutes. Quality Stroke Does the patient have a stroke diagnosis?: No VTE Prior VTE?: No VTE Risk Level:: Medical - moderate - high VTE Device Contraindication: Treatment Not Indicated VTE Drug Contraindication: N/A - Med Ordered
[2025-08-03 15:56] VITALS: BP 153/69; PULSE 77; RESP 16; TEMP 36.1; O2SAT 95
--- NOTE | 2025-08-03 19:09 | P.PNGI_ITS ---
Subjective Subjective Date of Service: 08/03/25 Interval History: Feeling well after yesterday's ERCP. Denies any abdominal pain. Eating well. Critical Care Time (minutes): 0 Physical Exam 2 Vital Signs: Vital Signs: Last Vital Signs Temp 97.0 F 08/03/25 15:56 Pulse 77 08/03/25 15:56 Resp 16 08/03/25 15:56 BP 153/69 H 08/03/25 15:56 Pulse Ox 95 08/03/25 15:56 O2 Del Method Room Air 08/03/25 15:56 BMI result Body Mass Index 29.5 Const: General: cooperative, healthy appearing, comfortable, no acute distress, well developed, alert, awake and Physically active Eyes: Sclerae: scleral abnormal (Icteric) Skin: General skin exam: jaundice Objective Data Labs 08/03/25 06:10 08/03/25 06:10 Labs: Laboratory Results - last 24 hr 08/01/25 08/03/25 16:21 06:10 WBC 7.0 RBC 4.04 L Hgb 11.2 L Hct 33.0 L MCV 81.7 MCH 27.7 MCHC 33.9 RDW 18.9 H Plt Count 209 MPV 11.0 Immature Gran % (Auto) 0.4 Neut % (Auto) 70.6 Lymph % (Auto) 16.4 L [place] % (Auto) 11.4 H Eos % (Auto) 0.9 Baso % (Auto) 0.3 Lymph # (Auto) 1.2 [place] # (Auto) 0.8 Eos # (Auto) 0.1 Baso # (Auto) 0.0 Abs Immat Gran (auto) 0.03 Absolute Neuts (auto) 5.0 Absolute Nucleated RBC 0.000 Nucleated RBC % (auto) 0.0 Sodium 136 Potassium 3.7 Chloride 102 Carbon Dioxide 24 Anion Gap 14 BUN 13 Creatinine 0.57 Estim Creat Clear Calc 76.2 Estimated GFR > 60 Random Glucose 97 Fasting Glucose 97 Calcium 8.6 Total Bilirubin 15.3 H Direct Bilirubin 10.8 H AST 89 H ALT 74 H Alkaline Phosphatase 313 H Total Protein 5.3 L Albumin 2.8 L CA 19-9 Antigen 617 H Procedures Date of Service Date of Service: 08/03/25 Progress Note: A&P Assessment and plan (1) Pancreatic mass: Status: Acute (2) Obstructive jaundice: Status: Acute Assessment and Plan: Imp: Stable after yesterday's ERCP. Given the ERCP findings and elevated CA 19-9 level this seems most c/w a pancreatic neoplasm. Awaiting cytology results from ERCP. Rec: Supportive care, Oncology follow up, F/U labs in the AM, and EUS at [facility]. She can have a biopsy during the EUS if yesterday's cytology is nondiagnostic. Her age may make consideration of a Whipple difficult, even if the EUS of the lesion looks favorable. My office will arrange for the EUS. D/W patient and family at the bedside in detail. They were all comfortable with this plan, Time Spent With Patient Time: Total time managing care of this patient today ____ minutes. Quality Stroke Does the patient have a stroke diagnosis?: No VTE Prior VTE?: No VTE Risk Level:: Medical - moderate - high VTE Device Contraindication: Treatment Not Indicated VTE Drug Contraindication: N/A - Med Ordered
[2025-08-03 19:57] VITALS: BP 147/61; PULSE 75; RESP 18; TEMP 36.6; O2SAT 99
[2025-08-04 03:22] VITALS: BP 124/60; PULSE 71; RESP 18; TEMP 36.6; O2SAT 98
[2025-08-04 07:03] LABS: Alanine Aminotransferase 87 U/L (0-31); Albumin Level 2.9 g/dL (3.5-5.0); Alkaline Phosphatase 313 U/L (39-117); Anion Gap 11 (12-20); Aspartate Amino Transferase 109 U/L (5-31); Blood Urea Nitrogen 14 mg/dL (9-16); Calcium 8.2 mg/dL (8.4-10.2); Carbon Dioxide 27 mmol/L (22-29); Chloride 100 mmol/L (96-108); Creatinine Clr Calc Pharmacy 71.1; Estimated Glomerular Filt Rate > 60; Potassium 3.8 mmol/L (3.3-5.1); Sodium 134 mmol/L (135-145); Total Protein 5.5 g/dL (6.5-8.0)
[2025-08-04 07:28] VITALS: BP 153/67; PULSE 73; RESP 18; TEMP 36.9; O2SAT 99
[2025-08-04] MEDS: Metoprolol Succinate ER 25 MG TAB.ER.24H PO (08:36)
--- NOTE | 2025-08-04 10:56 | PM.DS ---
DS: Providers Provider Date of Service: 08/04/25 Date of admission: 08/01/25 14:56 Date of discharge: 08/04/25 Primary care physician: Scott Rodriguez DO, MD Consults: 08/01/25 14:57 Consult to Gastroenterology Routine Consulting Provider: Pioneer Pb Bey Reason for consultation: Transaminitis, jaundice, question pancreatic mass 08/01/25 16:21 Consult to Hematology / Oncology Routine Consulting Provider: [facility] [place] Oncology/Hematology Reason for consultation: pancreatic mass DS: Diagnosis Discharge Diagnosis (1) Pancreatic mass: Status: Acute (2) Obstructive jaundice: Status: Acute (3) Anemia of chronic disease: Status: Acute DS: Summary Hospital Course Hospital Course: From the history and physical by the admitting hospitalist, Anna Almeida NP, 08/01/25: '80-year-old woman with a history of hypertension, hypothyroidism, left bundle branch block status post dual-chamber pacemaker secondary to jaundice. Apparently the patient had noticed that the patient's skin color was yellowing the patient herself had not noticed. Her daughter saw her today and noted the change. Patient denied chest pain, abdominal pain, nausea, vomiting, diarrhea, fever, chills, recent travel. She did not notice isidra-colored stools over the last 3 or [address] showing heterogeneous hypoenhancing mass within the uncinate process of the pancreas highly concerning for primary pancreatic malignancy. Total bilirubin 17.4, AST 94, ALT 93, alk phos 349, lipase 1034. Plan will be to admit patient for further management treatment of acute pancreatitis, transaminitis and question of pancreatic mass.' 80yo F with LBBB s/p PPM, HTN, and hypothyroidism presenting with painless jaundice, found to have mass of uncinate process of pancreas with CBD dilation. Hospital course by problem: pancreatic mass obstructive jaundice - Dr Soria, consulted, ERCP done 08/02: '1. Normal major papilla but with with some blood coming from it intermittently on a spontaneous basis 2. Selective cannulation of the bile duct was obtained over an angled guide wire after a several mm precut sphincteromy. Selective cholangiograms revealed a markedly dilated extrahepatic bile duct and mildly dilated intrahepatic ducts with a several cm distal biliary stricture with a shelf-like component c/w neoplasm.There were no filling defects in the CBD. 3. Performed an approx 8-10mm sphincterotomy over an angled guide wire 4. Obtained brushings of the distal biliary stricture over the guide wire 5. Placed a 10 Ma[place], 7cm biliary stent over the guide wire with good positioning above and below the stricture. There was a gush of black bile, but no purulence. There was excellent drainage of bile and dye from the stent. 6. The pancreatic duct was cannulated with the wire but no dye was injected into the PD Imp: Malignant biliary structure c/w her presumed pancreatic cancer' - advanced to solid diet with good tolerance; no nausea, vomiting, or abdominal pain - CA19.9 elevated - will need outpt follow up with Oncology; GI may arrange EUS as well - no blood thinners for 1 wk elevated lipase - suspect due to mass, not pancreatitis given lack of pain normocytic anemia - likely anemia of chronic disease; Hb stable Time Attestation Discharge Coordination Time (in mins): 40 Quality: Safe Use of Opioids Does Pt have an Active Cancer Diagnosis on the Problem List?: No Quality: Stroke Does the patient have a stroke diagnosis?: No Physical Exam Vital Signs: Vital Signs: Last Vital Signs Temp 98.5 F 08/04/25 07:28 Pulse 73 08/04/25 07:28 Resp 18 08/04/25 07:28 BP 153/67 H 08/04/25 07:28 Pulse Ox 99 08/04/25 07:28 O2 Del Method Room Air 08/04/25 07:28 BMI result Body Mass Index 29.5 Gen: in no acute distress HEENT: sclera icteric, moist mucus membranes Neck: supple Lungs: clear to auscultation bilaterally Heart: regular rate and rhythm, no murmurs Abd: soft, non-tender, non-distended Ext: no edema Skin: warm/well-perfused; jaundiced Neuro: alert and oriented x3, no focal findings Psych: appropriate affect DS: Data Data Completed and Pending Completed studies during hospitalization [Text1]: Laboratory Results WBC 7.0 X10*3/uL (4.8-10.8) 08/03/25 06:10 RBC 4.04 X10*6/uL (4.20-5.50) L 08/03/25 06:10 Hgb 11.2 g/dl (12.0-16.0) L 08/03/25 06:10 Hct 33.0 % (37.0-47.0) L 08/03/25 06:10 MCV 81.7 fL (80.0-98.0) 08/03/25 06:10 MCH 27.7 pg (27.0-33.0) 08/03/25 06:10 MCHC 33.9 g/dl (31.0-35.0) 08/03/25 06:10 RDW 18.9 % (11.0-16.0) H 08/03/25 06:10 Plt Count 209 X10*3/uL (160-400) 08/03/25 06:10 MPV 11.0 fL (9.4-12.3) 08/03/25 06:10 Immature Gran % (Auto) 0.4 % (0.0-0.4) 08/03/25 06:10 Neut % (Auto) 70.6 % (45-73) 08/03/25 06:10 Lymph % (Auto) 16.4 % (20-40) L 08/03/25 06:10 [place] % (Auto) 11.4 % (2-11) H 08/03/25 06:10 Eos % (Auto) 0.9 % (0-4) 08/03/25 06:10 Baso % (Auto) 0.3 % (0-2) 08/03/25 06:10 Lymph # (Auto) 1.2 X10*3/uL (1.2-4.9) 08/03/25 06:10 [place] # (Auto) 0.8 X10*3/uL (0.1-1.2) 08/03/25 06:10 Eos # (Auto) 0.1 X10*3/uL (0.0-0.4) 08/03/25 06:10 Baso # (Auto) 0.0 X10*3/uL (0.0-0.2) 08/03/25 06:10 Abs Immat Gran (auto) 0.03 X10*3/uL (0.00-0.03) 08/03/25 06:10 Absolute Neuts (auto) 5.0 x10*3/uL (2.0-8.3) 08/03/25 06:10 Absolute Nucleated RBC 0.000 X10*3/uL (0.0-0.012) 08/03/25 06:10 Nucleated RBC % (auto) 0.0 /100WBC (0.0-0.2) 08/03/25 06:10 Hold Purple Top SEE NOTE 08/04/25 06:23 PT 14.5 SEC (11.2-13.5) H 08/02/25 05:15 INR 1.2 (0.9-1.1) H 08/02/25 05:15 Sodium 134 mmol/L (135-145) L 08/04/25 06:23 Potassium 3.8 mmol/L (3.3-5.1) 08/04/25 06:23 Chloride 100 mmol/L (96-108) 08/04/25 06:23 Carbon Dioxide 27 mmol/L (22-29) 08/04/25 06:23 Anion Gap 11 (12-20) L 08/04/25 06:23 BUN 14 mg/dL (9-16) 08/04/25 06:23 Creatinine 0.61 mg/dL (0.5-1.4) 08/04/25 06:23 Estim Creat Clear Calc 71.1 08/04/25 06:23 Estimated GFR > 60 08/04/25 06:23 Random Glucose 131 mg/dL (60-115) H 08/04/25 06:23 Fasting Glucose 97 mg/dL (60-99) 08/03/25 06:10 Calcium 8.2 mg/dL (8.4-10.2) L 08/04/25 06:23 Iron 117 mcg/dL (30-160) 08/02/25 05:15 TIBC 214 mcg/dL (228-428) L 08/02/25 05:15 % Saturation 55 % (15-50) H 08/02/25 05:15 Unsat Iron Binding 97 ug/dL 08/02/25 05:15 Total Bilirubin 10.6 mg/dL (0.0-1.0) H 08/04/25 06:23 Direct Bilirubin 7.6 mg/dL (0.0-0.5) H 08/04/25 06:23 AST 109 U/L (5-31) H 08/04/25 06:23 ALT 87 U/L (0-31) H 08/04/25 06:23 Alkaline Phosphatase 313 U/L (39-117) H 08/04/25 06:23 Ammonia 22 umol/L (13-55) 08/01/25 11:11 Total Protein 5.5 g/dL (6.5-8.0) L 08/04/25 06:23 Albumin 2.9 g/dL (3.5-5.0) L 08/04/25 06:23 Triglycerides 215 mg/dL (<150) H 08/01/25 11:11 Lipase 1333 U/L (8-78) H 08/02/25 05:15 Carcinoembryonic Ag 4.50 ng/mL 08/01/25 16:21 CA 19-9 Antigen 617 U/mL (<34) H 08/01/25 16:21 Impressions Guidance Fluoroscopy 08/02/25 21:07 IMPRESSION: Fluoroscopy during procedure. Please see procedure report for additional information. Electronically signed by: Pieter Morel MD 08/03/2025 07:00 AM [facility] Pending studies at discharge: Pending at discharge 08/02/25 21:40 Cytology [PTH] Routine Discharge Plan Discharge Anticipated Discharge Date/Time: 08/04/25 10:54 Patient Disposition: Home, Self-Care Discharge Diagnosis: obstructive jaundice from pancreatic mass Referrals: Han Jamil MD [Physician, Hematology & Oncology] - 1 Week Scott Rodrigeuz DO, MD [Primary Care Provider, Internal Medicine] - 1 Week Pieter Soria MD [Physician, Gastroenterology] - 1 Week Discharge Medications: Continued levothyroxine 100 mcg tablet 100 mcg PO DAILY metoprolol succinate 25 mg tablet extended release 24 hr 25 mg PO DAILY multivitamin Tablet 1 tab PO DAILY Glucosamine Chondroitin 550-30-1 mg Capsule 1 cap PO BID Discharge Orders: Discharge Order (Routine); Ordered 08/04/25 Ordered By: Jacqui Benton Diet: Advance to usual diet Activity on Discharge: As tolerated Stand Alone Forms: Patient Portal Discharge page Print Language: Kyrgyz Care Plan Goals: diagnose and treat pancreatic mass with obstruction Health Concerns: obstructive jaundice from pancreatic mass Plan of Treatment: ERCP with biopsies and brushings and stenting done 08/02/25. No aspirin or other blood thinners for at least 1 week afterwards. Follow up with Dr Jamil from [facility] [place] Oncology next week. She or Dr Soria from [facility] [place] Gastroenterology may arrange an endoscopic US at [facility]. Please follow up with your primary care doctor within 1-2 weeks. Return to the hospital if you experience recurrent or worsening symptoms. Assessment: See Discharge Summary.
[2025-08-04 11:05] VITALS: BP 151/66; PULSE 76; RESP 16; TEMP 36.6; O2SAT 100
--- NOTE | 2025-08-04 11:09 | MHC.CM.PN ---
dDP: PT HAS BEEN MEDICALLY CLEARED FOR DC HOME, NO SERVICES. FAMILY WILL TRANSPORT.
--- NOTE | 2025-08-04 11:13 | PC.NURSE ---
clerk secretary attempted to call Dr. Jamil;s office to schedule an appointment for patient, office stated they could not make an appointment until notes were finalized by provider. Patient educated to call Dr. Jamil's office for a follow up appointment upon discharge, patient verbalized understanding, contact information for Dr. Jamil's office provided in discharge packet.
== END 2025-08-04 11:52 | disposition home or self-care (01) | DRG 435 ==
LOC: HO.ED 14:56 → HO.EDOVER 15:03 → HO.S3 15:14
PROVIDERS: Internal Medicine; Registered Nurse Emergency; Admitting Provider Nurse Practitioner Acute Care; Emergency Provider Emergency Medicine; PCP Internal Medicine; Visit Provider Family Medicine
PROC: 0F798DZ Dilation of Common Bile Duct with Intraluminal Device, Via Natural or Artificial Opening Endoscopic (ICD-10-PCS; CPT 43260; principal; 2025-08-02 16:00)
DX: C25.0 Malignant neoplasm of head of pancreas (principal); K83.1 Obstruction of bile duct; E03.9 Hypothyroidism, unspecified; D63.0 Anemia in neoplastic disease; I44.7 Left bundle-branch block, unspecified; I10 Essential (primary) hypertension; Z95.0 Presence of cardiac pacemaker; Z87.891 Personal history of nicotine dependence; Z79.890 Hormone replacement therapy; Z79.899 Other long term (current) drug therapy
CPT/HCPCS: 36415; 74177; 76705; 80048; 80053; 80076; 82140; 82248; 82378; 83540; 83690; 84478; 85025; 85610; 86301; 88112; 88305; 99285; C2617; J0525; J1610; J2003; J2405; J2704; J3010; J3430; J7120; Q9967

== ENCOUNTER → 2025-08-01 11:25 | Outpatient (BNV) | payer MEDICARE, SELFPAY | PROVIDERS: Emergency Provider Emergency Medicine; PCP Internal Medicine; Visit Provider Radiology Diagnostic Radiology | DX: R17 Unspecified jaundice (principal); K83.8 Other specified diseases of biliary tract; K86.89 Other specified diseases of pancreas; K80.20 Calculus of gallbladder without cholecystitis without obstruction | CPT/HCPCS: 74177; 76705 ==

== ENCOUNTER → 2025-08-01 14:56 | Outpatient (BNV) | payer MEDICARE, SELFPAY | PROVIDERS: Admitting Provider Nurse Practitioner Acute Care; Emergency Provider Emergency Medicine; PCP Internal Medicine; Visit Provider Nurse Practitioner Acute Care | DX: R74.01 Elevation of levels of liver transaminase levels (principal); K85.90 Acute pancreatitis without necrosis or infection, unspecified; R17 Unspecified jaundice; K86.89 Other specified diseases of pancreas | CPT/HCPCS: 99222; 99232 ==

== ENCOUNTER → 2025-08-01 14:56 | Outpatient (BNV) | payer MEDICARE, SELFPAY | PROVIDERS: Admitting Provider Nurse Practitioner Acute Care; Emergency Provider Emergency Medicine; PCP Internal Medicine; Visit Provider Internal Medicine Medical Oncology | DX: K86.9 Disease of pancreas, unspecified (principal); R74.01 Elevation of levels of liver transaminase levels | CPT/HCPCS: 99232 ==

== ENCOUNTER → 2025-08-10 08:40 | Outpatient (BNV) | payer MEDICARE, SELFPAY | PROVIDERS: PCP Internal Medicine; Visit Provider Internal Medicine Medical Oncology | DX: C25.9 Malignant neoplasm of pancreas, unspecified (principal) | CPT/HCPCS: 99212; 99214 ==